=== PATIENT | male | born 1970 | race Caucasian/White ===

== ENCOUNTER 2017-06-16 23:35 | Emergency (ER) | payer OTHER ==
[~2017-06-16] VITALS: Ht 185.4 cm; Wt 117.9 kg
[2017-06-16 23:51] VITALS: Ht 185.4 cm; Wt 117.9 kg
[2017-06-17 01:07] VITALS: BP 158/94
== END 2017-06-17 01:07 | disposition home or self-care (01) ==
LOC: ED 23:35
DX: M19.90 Unspecified osteoarthritis, unspecified site (principal); M25.562 Pain in left knee; M79.642 Pain in left hand; M54.5 Low back pain; I10 Essential (primary) hypertension
CPT/HCPCS: J1885

== ENCOUNTER 2017-06-21 00:13 | Emergency (ER) | payer OTHER ==
[~2017-06-21] VITALS: Ht 182.9 cm; Wt 122.5 kg
[2017-06-21 00:42] VITALS: Ht 182.9 cm; Wt 122.5 kg
[2017-06-21 01:15] VITALS: BP 145/84
== END 2017-06-21 01:15 | disposition home or self-care (01) ==
LOC: ED 00:13
DX: M17.12 Unilateral primary osteoarthritis, left knee (principal); M25.532 Pain in left wrist; M25.562 Pain in left knee; I10 Essential (primary) hypertension; Z90.89 Acquired absence of other organs

== ENCOUNTER 2017-07-12 12:09 | Emergency (ER) | payer OTHER ==
[~2017-07-12] VITALS: Ht 182.9 cm; Wt 119.7 kg
[2017-07-12 12:14] VITALS: Ht 182.9 cm; Wt 119.7 kg
[2017-07-12 13:15] VITALS: BP 158/71
== END 2017-07-12 13:15 | disposition home or self-care (01) ==
LOC: ED 12:09
DX: M19.90 Unspecified osteoarthritis, unspecified site (principal); F17.210 Nicotine dependence, cigarettes, uncomplicated; M10.9 Gout, unspecified; F32.9 Major depressive disorder, single episode, unspecified; I10 Essential (primary) hypertension; Z76.0 Encounter for issue of repeat prescription; Z90.89 Acquired absence of other organs
CPT/HCPCS: 99406

== ENCOUNTER 2017-11-14 06:27 | Emergency (ER) | payer OTHER ==
[2017-11-14 06:50] VITALS: Ht 182.9 cm
[2017-11-14 08:10] VITALS: BP 167/108
== END 2017-11-14 08:10 | disposition home or self-care (01) ==
LOC: ED 06:27
DX: M17.0 Bilateral primary osteoarthritis of knee (principal); I10 Essential (primary) hypertension; Z90.89 Acquired absence of other organs
CPT/HCPCS: J1885

== ENCOUNTER 2018-01-12 05:29 | Emergency (ER) | payer OTHER ==
[~2018-01-12] VITALS: Ht 180.3 cm; Wt 132.1 kg
[2018-01-12 05:40] VITALS: Ht 180.3 cm; Wt 132.1 kg
[2018-01-12 06:20] VITALS: BP 151/94
== END 2018-01-12 06:20 | disposition home or self-care (01) ==
LOC: ED 05:29
DX: M25.562 Pain in left knee (principal); M25.561 Pain in right knee; M25.522 Pain in left elbow; M25.521 Pain in right elbow; I10 Essential (primary) hypertension; Z90.89 Acquired absence of other organs; Z93.3 Colostomy status; Z87.442 Personal history of urinary calculi
CPT/HCPCS: J1885

== ENCOUNTER 2018-02-08 05:52 | Emergency (ER) | payer OTHER ==
[~2018-02-08] VITALS: Ht 180.3 cm; Wt 128.8 kg
[2018-02-08 06:03] VITALS: BP 166/84; Ht 180.3 cm; Wt 128.8 kg
== END 2018-02-08 06:59 | disposition home or self-care (01) ==
LOC: ED 05:52
DX: M25.522 Pain in left elbow (principal); M25.521 Pain in right elbow; M25.562 Pain in left knee; M25.572 Pain in left ankle and joints of left foot; I10 Essential (primary) hypertension; M10.9 Gout, unspecified; F32.9 Major depressive disorder, single episode, unspecified; Z93.3 Colostomy status; Z87.442 Personal history of urinary calculi
CPT/HCPCS: J1885

== ENCOUNTER 2018-02-20 11:38 | Emergency (ER) | payer OTHER ==
[~2018-02-20] VITALS: Ht 177.8 cm; Wt 129.3 kg
[2018-02-20 11:47] VITALS: BP 138/80; Ht 177.8 cm; Wt 129.3 kg
== END 2018-02-20 13:35 | disposition home or self-care (01) ==
LOC: ED 11:38
DX: M10.9 Gout, unspecified (principal)
CPT/HCPCS: J1885

== ENCOUNTER 2018-03-26 23:55 | Emergency (ER) | payer OTHER ==
[~2018-03-26] VITALS: Ht 180.3 cm; Wt 128.8 kg
[2018-03-27 00:02] VITALS: Ht 180.3 cm; Wt 128.8 kg
[2018-03-27 00:52] VITALS: BP 135/87
== END 2018-03-27 00:52 | disposition home or self-care (01) ==
LOC: ED 23:55
DX: M19.021 Primary osteoarthritis, right elbow (principal); M17.11 Unilateral primary osteoarthritis, right knee; I10 Essential (primary) hypertension; M10.9 Gout, unspecified; F32.9 Major depressive disorder, single episode, unspecified; Z90.89 Acquired absence of other organs; Z87.442 Personal history of urinary calculi

== ENCOUNTER 2018-05-03 00:35 | Emergency (ER) | payer OTHER ==
[~2018-05-03] VITALS: Ht 182.9 cm; Wt 129.3 kg
[2018-05-03 00:49] VITALS: Ht 182.9 cm; Wt 129.3 kg
[2018-05-03 01:48] VITALS: BP 149/92
== END 2018-05-03 01:48 | disposition home or self-care (01) ==
LOC: ED 00:35
DX: M17.11 Unilateral primary osteoarthritis, right knee (principal); M19.071 Primary osteoarthritis, right ankle and foot; I10 Essential (primary) hypertension; F32.9 Major depressive disorder, single episode, unspecified; M10.9 Gout, unspecified; Z90.89 Acquired absence of other organs; Z90.49 Acquired absence of other specified parts of digestive tract; Z87.442 Personal history of urinary calculi

== ENCOUNTER 2018-07-22 13:21 | Emergency (ER) | payer OTHER ==
[~2018-07-22] VITALS: Ht 180.3 cm; Wt 125.6 kg
[2018-07-22 14:07] VITALS: Ht 180.3 cm; Wt 125.6 kg
[2018-07-22 17:06] VITALS: BP 138/77
== END 2018-07-22 17:09 | disposition home or self-care (01) ==
LOC: ED 13:21
DX: M19.90 Unspecified osteoarthritis, unspecified site (principal); I10 Essential (primary) hypertension
CPT/HCPCS: J1885

== ENCOUNTER 2018-10-09 10:32 | Emergency (ER) | payer OTHER ==
[~2018-10-09] VITALS: Ht 182.9 cm; Wt 126.6 kg
[2018-10-09 10:38] VITALS: BP 168/91; Ht 182.9 cm; Wt 126.6 kg
== END 2018-10-09 11:28 | disposition home or self-care (01) ==
LOC: ED 10:32
DX: M10.9 Gout, unspecified (principal); I10 Essential (primary) hypertension; F32.9 Major depressive disorder, single episode, unspecified; Z87.442 Personal history of urinary calculi
CPT/HCPCS: J1885; J2930

== ENCOUNTER 2018-11-17 11:19 | Emergency (ER) | payer OTHER ==
[~2018-11-17] VITALS: Ht 180.3 cm; Wt 127.0 kg
[2018-11-17 11:23] VITALS: Ht 180.3 cm; Wt 127.0 kg
[2018-11-17 12:10] VITALS: BP 153/69
== END 2018-11-17 13:01 | disposition home or self-care (01) ==
LOC: ED 11:19
DX: M10.062 Idiopathic gout, left knee (principal); M10.072 Idiopathic gout, left ankle and foot; I10 Essential (primary) hypertension; F32.9 Major depressive disorder, single episode, unspecified; Z76.0 Encounter for issue of repeat prescription; Z90.89 Acquired absence of other organs; Z87.442 Personal history of urinary calculi

== ENCOUNTER 2018-12-23 11:38 | Emergency (ER) | payer OTHER ==
[~2018-12-23] VITALS: Ht 154.9 cm; Wt 125.6 kg
[2018-12-23 11:47] VITALS: BP 146/74; Ht 154.9 cm; Wt 125.6 kg
== END 2018-12-23 13:09 | disposition home or self-care (01) ==
LOC: ED 11:38
DX: M10.062 Idiopathic gout, left knee (principal); I10 Essential (primary) hypertension; F32.9 Major depressive disorder, single episode, unspecified; Z76.0 Encounter for issue of repeat prescription; Z87.442 Personal history of urinary calculi

== ENCOUNTER 2019-02-18 14:10 | Emergency (ER) | payer OTHER ==
[~2019-02-18] VITALS: Ht 180.3 cm; Wt 121.1 kg
[2019-02-18 14:26] VITALS: Ht 180.3 cm; Wt 121.1 kg
[2019-02-18 17:05] VITALS: BP 145/73
== END 2019-02-18 17:05 | disposition home or self-care (01) ==
LOC: ED 14:10
DX: M10.9 Gout, unspecified (principal); I10 Essential (primary) hypertension; F32.9 Major depressive disorder, single episode, unspecified; Z87.442 Personal history of urinary calculi; Z98.890 Other specified postprocedural states; Z76.0 Encounter for issue of repeat prescription

== ENCOUNTER 2019-02-23 12:34 | Inpatient (IN) | payer OTHER ==
[~2019-02-23] VITALS: Ht 180.3 cm; Wt 122.2 kg
[2019-02-23 12:37] VITALS: Ht 180.3 cm; Wt 122.2 kg
--- NOTE | 2019-02-23 12:50 | NUR ---
PT PRESENTS TO ED BIB AMBULANCE WITH C/O ABDOMINAL PAIN AND CRAMPING WORSENING OVER LAST 3 DAYS. PT STS HE NOTICED SOMETHING BEGAN TO PROTRUDE FROM COLOSTOMY STOMA AND STATED HE COULD NOT USE REG COLOSTOMY BAG AND NEED TO USE ZIP LOCK BAG. PROLAPSE BOWEL NOTED IN PT ZIP LOCK BAG. BAG IS TAPED TO PT ABDOMEN. PT STS HIS CRAMPY ABDOMINAL PAIN WAS WORSE TODAY SO HE CALLED 911. PT DENIES FEVER, N/V, OR SOB. PT STS HE HAS NOT EATEN ANYTHING SINCE YESTERDAY. PT AAOX4, RESP E/U, ON FULL CM, WILL CONTINUE TO MONITOR.
--- NOTE | 2019-02-23 13:10 | NUR ---
PT TAKEN TO CT VIA [facility].
[2019-02-23 13:13] LABS: BASOPHIL % 0.1 % (0-2); RED CELL DISTRIBUTION WIDTH 15.7 % (11.5-14.5)
[2019-02-23 13:28] LABS: CALCIUM 8.9 mg/dL (8.5-10.1); CARBON DIOXIDE 27.3 mmol/L (21-32); CHLORIDE SERUM 105 mmol/L (98-107); CREATININE SERUM 1.1 mg/dL (0.7-1.3); GFR1 > 60 mL/min; GLUCOSE SERUM 114 mg/dL (74-106); POTASSIUM SERUM 3.7 mmol/L (3.5-5.1); SODIUM SERUM 142 mmol/L (136-145)
[2019-02-23 13:38] LABS: PLATELET COUNT 622 x10^3mcL (130-400)
[2019-02-23 13:41] LABS: ALBUMIN 3.5 g/dL (3.4-5.0); ALKALINE PHOSPHATASE 83 U/L (46-116); ALT/SGPT 19 U/L (16-63); AST/SGOT 6 U/L (15-37); BILIRUBIN TOTAL 0.63 mg/dL (0.20-1.00); CHOLESTEROL 175 mg/dL (<200); HDL CHOLESTEROL 42 mg/dL (40-60); LIPASE 78 IU/L (73-393); T4(THYROXINE) 6.6 ug/dL (4.7-13.3); TOTAL PROTEIN, SERUM 7.9 g/dL (6.4-8.2)
--- NOTE | 2019-02-23 13:45 | NUR ---
PT INST TO PROVIDE URINE SAMPLE SSON POSSIBLE. URINAL PROVIDED AT BEDSIDE
--- NOTE | 2019-02-23 14:32 | NUR ---
PT MEDICATED ORDERED, NO ADVERSE REACTIONS NOTED. PT LAYING ON GURNEY IN POSITION OF COMFORT, AAOX4, RESP E/U, NO ACUTE DISTRESS NOTED AT THIS TIME.
--- NOTE | 2019-02-23 14:40 | NUR ---
PT ABLE TO PROVIDE URINE SAMPLE. SAMPLE SENT TO LAB.
[2019-02-23 15:16] LABS: microscopic required? YES; urine erythrocyte 3+ (NEGATIVE)
[2019-02-23 15:47] LABS: AMPHETAMINE QUAL UR NONE DETECTED (See below)
[2019-02-23] MEDS ORDERED: ZESTRIL5 MG PO (16:18)
[2019-02-23] MEDS ORDERED: DICLOFENAC POTA50 MG PO (16:18)
--- NOTE | 2019-02-23 17:00 | NUR ---
REPORT GIVEN TO BLANCA ON MED-SURG UNIT TO ASSUME CARE OF PT.
[2019-02-23 17:41] VITALS: BP 168/95
--- NOTE | 2019-02-23 17:51 | NUR ---
RECEIVED PT FROM ED VIA [facility]. ORIENTED PT TO ROOM AND SURROUNDINGS. IV NOTED TO RAC PATENT AND INTACT. INSTRUCTED PT ON THE USE OF CALL LIGHT FOR ASSISTANCE. ENDORSED PT TO PRIMARY NURSE BLANCA
--- NOTE | 2019-02-23 18:15 | NUR ---
DR ARGUETA SAW PATIENT AND EXPLAINED PROCEDURE TO TAKE PLACE TOMORROW. EXPLORATRY LAP WITH COLOSTOMY RESECTION. ORDERED FOR PATIENT TO BE ON LOW INTERMITTENT SUCTION
--- NOTE | 2019-02-23 19:10 | NUR ---
RECEIVED REPORT FROM BLANCA ONEAL. PT AAOX4 WITH FAMILY AT BEDSIDE. PT DENIES HEADACHE OR DIZZINESS AT THIS TIME. PT HAS NGT TO RIGHT NARE. PT IS MED-SURG AND DENIES CHEST PAIN OR PRESSURE AT THIS TIME. PT PULSES PALPABLE AND CAP REFILL <3 SEC. PT HAS TRACE EDEMA TO BLE. PT LUNG SOUNDS CTA ON RA. PT BREATHING IS EVEN AND UNLABORED. PT HAS HYPOACTIVE BOWEL SOUNDS X4. PT HAS DISTENDED ABD WITH PROLAPSED OSTOMY IN RLQ. PT DENIES N/V/D AT THIS TIME. PT VOIDS FREELY BUT HAS SCROTAL EDEMA. PT IS AMBULATORY WITH GENERALIZED WEAKNESS. PT SKIN IS INTACT AND WNL EXCEPT FOR PROLAPSED COLOSTOMY. PT IV IS PATENT AND WNL. PT IS CALM AND COOPERATIVE WITH NURSING CARE. CALL LIGHT WITHIN REACH. BED IN LOWEST POSITION. SIDE RAILS X2 UP. WILL CONTINUE TO MONITOR.
--- NOTE | 2019-02-23 19:30 | NUR ---
REASSESSED PT PAIN LEVEL AFTER DAY SHIFT RN HAD ADMINISTERED NORCO FOR ABD PAIN. PT STATES "I AM STILL HAVING ABD PAIN OF 8/10." WILL MAKE DR. MARKS AWARE AND AWAITING ORDERS.
--- NOTE | 2019-02-23 19:35 | NUR ---
GAVE REPORT TO NIGHT NURSE, ENDORSED CARE
--- NOTE | 2019-02-23 20:00 | NUR ---
SPOKE WITH DR. MARKS AND AWAITING ORDERS FOR PAIN MEDS.
[2019-02-23 20:47] VITALS: BP 149/86
--- NOTE | 2019-02-23 22:30 | NUR ---
REASSESSED PT AFTER ADMINISTRATION OF TORADOL PER MAR. PT STATES "TORADOL DOES NOT WORK FOR ME." WILL ADMINISTER MORPHINE PER MAR AFTER ASSESSING BP.
--- NOTE | 2019-02-23 23:00 | NUR ---
HUB INVENTORY SPECIALIST CALLED AND MADE AWARE OF COMING TO UNIT TO GET XRAY FOR KUB FOR NGT. AWAITING FOR ARRIVAL OF HUB INVENTORY SPECIALIST.
--- NOTE | 2019-02-24 00:04 | NUR ---
RADIOLOGY CALLED AND MADE AWARE THAT NGT NEEDS TO BE ADVANCED 8CM. WILL CARRY OUT ORDERS.
--- NOTE | 2019-02-24 00:35 | NUR ---
D/C NGT AND REINSERTED NEW NGT INTO RIGHT NARE. ADVANCED NGT AND CONFIRMED PLACEMENT WITH 10CC OF AIR. WILL ORDER ANOTHER KUB TO CONFIRM PLACEMENT.
--- NOTE | 2019-02-24 00:38 | NUR ---
PT IS AWAKE AND LAYING IN BED. PT STATES "I AM STILL IN PAIN AND WOULD LIKE SOMETHING STRONGER." MADE DR. MARKS AWARE AND AWAITING ORDERS.
[2019-02-24 05:56] VITALS: BP 148/84
--- NOTE | 2019-02-24 06:15 | NUR ---
PT LEFT FOR SURGERY. V/S STABLE.
--- NOTE | 2019-02-24 06:17 | NUR ---
PT SLEPT INTERMITTENTLY THROUGHOUT THE NIGHT. PT COMPLIED WITH NURSING CARE THROUGHOUT THE SHIFT. NO ACUTE DISTRESS NOTED. SAFETY AND COMFORT MEASURES MAINTAINED. ALL QUESTIONS AND CONCERNS ADDRESSED. WILL ENDORSE CARE TO DAY SHIFT NURSE.
[2019-02-24 06:24] LABS: CARBON DIOXIDE 27.4 mmol/L (21-32); CREATININE SERUM 1.4 mg/dL (0.7-1.3); POTASSIUM SERUM 4.1 mmol/L (3.5-5.1)
[2019-02-24 06:51] LABS: BASOPHIL % 0.3 % (0-2)
--- NOTE | 2019-02-24 07:13 | NUR ---
RECEIVED REPORT FROM JC Coburn PATIENT IS CURRENTLY DOWNSTAIRS FOR SURGERY. ALL QUESTIONS AND CONCERNS ADDRESSED. AWAITING PATIENT RETURN TO FLOOR.
[2019-02-24 09:25] LABS: RED CELL DISTRIBUTION WIDTH 15.7 % (11.5-14.5)
[2019-02-24 09:26] LABS: PLATELET COUNT 525 x10^3mcL (130-400)
--- NOTE | 2019-02-24 10:03 | NUR ---
RECEIVED REPORT FROM JUAN IN POST[facility]. PATIENT TOLERATED PROCEDURE WELL. INCISION X1 WITH SUTURES AND LOPEZ, COVERED WITH 4X4 AND TAPE. NEW COLOSTOMY PLACED. VITALS STABLE (SEE DOCUMENTATION. AWATING PT ARRIVAL TO FLOOR.
[2019-02-24 10:29] VITALS: BP 138/75
--- NOTE | 2019-02-24 10:29 | NUR ---
RECEIVED PATIENT FROM POSTOP. PATIENT RESTING COMFORTABLY IN BED WITH ALL NEEDS MET. VITALS TAKEN AND STABLE (SEE DOCUMENTATION). PT C/O NO PAIN. MODERATE DRAINAGE NOTED AT SURGICAL SITE, JUAN CLEANED AND REINFORCED. WILL MONITOR. FLUIDS RESUMED AND MEDICATIONS GIVEN.
--- NOTE | 2019-02-24 10:44 | NUR ---
ROUNDS: DR CASTAÑEDA, RESIDENTS, AND PRIMARY RN AT BEDSIDE. DISCUSSED PLAN OF CARE, SURGERY, AND COLOSTOMY HISTORY. DISCUSSED PRIMARY DOCTOR. ALL QUESTIONS AND CONCERNS ADDRESSED. PLAN IS TO AWAIT SURGEON CONSENT TO EAT AND MONITOR FOOD TOLERANCE.
--- NOTE | 2019-02-24 12:29 | NUR ---
SPOKE WITH DR QUIROGA ABOUT LEAKING COLOSTOMY AND SOILED DRESSING. DR QUIROGA GAVE OK TO CHANGE COLOSTOMY AND INFORMED THAT WOUND CARE WAS CONSULTED.
--- NOTE | 2019-02-24 14:32 | NUR ---
SPOKE WITH DR PINEDA TO REQUEST RENEWING OF IV DILAUDID PER PT REQUEST AND FOR POSSIBLE FOOD ORDER. DR PINEDA TO CONSULT WITH SURGEON AND PLACE ORDERS ACCORDINGLY. WILL AWAIT ORDERS AND NOTIFY PATIENT.
--- NOTE | 2019-02-24 15:20 | NUR ---
IN TO SEE PATIENT AFTER LUNCH AND ASSESS NEEDS. PT REPORTS CONTINUED PAIN 10. STILL NO ORDER FOR ALTERNATE MEDICATION. WILL ADMINISTER TORADOL.
[2019-02-24 17:03] VITALS: BP 123/69
--- NOTE | 2019-02-24 19:25 | NUR ---
RECEIVED PT IN BED AWAKE,ALERT,ORIENTED AND WITH VISITOR AT BEDSIDE. LUNGS CTA. NO SOB ON ROOM AIR. BOWEL SOUNDS ACTIVE. SX SITE TO RT SIDE OF ABDOMEN W/ DRESSING CDI. COLOSTOMY IN PLACE. STOMA APPEARS MOIST AND RED IN COLOR. PT HAS NO C/O PAIN AT THIS TIME. W/ NGT TO RT NARE IN PLACE. IVF NS INFUSING AT 100 CC/HR VIA LT HAND. W/ HL TO RTAC INTACT. CALL LIGHT W/IN REACH.
--- NOTE | 2019-02-24 19:36 | NUR ---
REPORT GIVEN TO BOO ONEAL. PATIENT RESTING COMFORTABLY IN BED WITH FAMILY AT BEDSIDE. NO NEEDS IDENTIFIED. ALL QUESTIONS AND CONCERNS ADDRESSED. ALL CARES ENDORSED.
[2019-02-24 21:10] VITALS: BP 122/67
--- NOTE | 2019-02-24 21:25 | NUR ---
PT C/O PAIN AT SX SITE 10/16. MORPHINE SULFATE 1 MG IV GIVEN.
--- NOTE | 2019-02-25 02:06 | NUR ---
PT C/O POST-OP PAIN 11/16. MORPHINE SULFATE 1 MG IV GIVEN.
--- NOTE | 2019-02-25 02:10 | NUR ---
COLOSTOMY NOTED FULL OF GAS AND W/ A LITTLE GREENISH MUCOID OUTPUT. BAG EMPTIED.
--- NOTE | 2019-02-25 05:27 | NUR ---
PT SLEPT AT LONG INTERVALS. HE WAS MEDICATED FOR PAIN X2. PT KEPT NPO EXCEPT FOR ICE CHIPS AND SIPS OF WATER. COLOSTOMY INTACT. DRESSING TO SX SITE CDI. IVF D5 1/2 NS INFUSING AT 100 CC/HR VIA LT HAND. HL TO RTAC INTACT. ALL NEEDS ATTENDED TO. PT'S BROTHER AT BEDSIDE.
--- NOTE | 2019-02-25 05:59 | NUR ---
PT C/O PAIN TO SX SITE 12/17. MORPHINE SULFATE 1 MG IV GIVEN.
[2019-02-25 06:00] VITALS: BP 133/69
[2019-02-25 06:41] LABS: CALCIUM 7.7 mg/dL (8.5-10.1); CARBON DIOXIDE 28.6 mmol/L (21-32); CREATININE SERUM 1.5 mg/dL (0.7-1.3); POTASSIUM SERUM 3.7 mmol/L (3.5-5.1)
[2019-02-25 07:05] LABS: BASOPHIL % 0.3 % (0-2)
--- NOTE | 2019-02-25 07:35 | NUR ---
PATIENT RESTING IN BED, NO ACUTE DISTRESS NOTED. PATIENT DENIES SOB, ON ROOM AIR, LUNG SOUNDS CTA. BOWEL SOUNDS ACTIVE X4, +GAS. GREEN DRAINAGE NOTED TO RLQ COLOSTOMY. PATIENT NGT TO RIGHT NARE CLAMPED AT THIS TIME. PATIENT ABLE TO VOID FREELY, EDEMA NOTED TO SCROTAL. PATIENT DENIES BURNING, AND FREQUENCY UPON URINATING. SURGICAL INCISION TO BELOW RIGHT RLQ COLOSTOMY, CDI, NO DRAINAGE NOTED. D5 1/2NS INFUSING TO LH AT 100ML/HR, IV SITE CDI&PATENT, NO S/S OF INFILTRATION. CALL LIGHT WITHIN REACH, BED IN LOW POSITION, WILL CONTINUE TO MONITOR.
[2019-02-25 07:42] LABS: PLATELET COUNT 496 x10^3mcL (130-400); RED CELL DISTRIBUTION WIDTH 15.9 % (11.5-14.5)
--- NOTE | 2019-02-25 08:25 | NUR ---
PATIENT RIGHT NARE NGT WAS CLAMPED, PLACED PATIENT TO LOW INT. SUCTION AT THIS TIME. EDUCATED PATIENT ON PURPOSE FOR SUCTION, PATIENT VERBALIZED UNDERSTANDING. WILL CONTINUE TO MONITOR PATIENT, CALL LIGHT WITHIN REACH.
[2019-02-25 09:19] VITALS: BP 144/78
--- NOTE | 2019-02-25 09:23 | NUR ---
PATIENT WAS C/O ABDOMINAL PAIN 10/16, MEDICATED PATIENT WITH NORCO PER PROTOCOL (SEE EMAR). EDUCATED PATIENT ON PAIN MANAGEMENT, PATIENT VERBALIZED UNDERSTANDING, CALL LIGHT WITHIN REACH, BED IN LOW POSITION. WILL CONTINUE TO MONITOR.
--- NOTE | 2019-02-25 09:40 | NUR ---
PATIENT ACCIDENTLY PULLED OUT NGT TO RIGHT NARE, WHILE TRYING TO GET UP. DR. PINEDA MADE AWARE, NO FURTHER ORDERS AT THIS TIME. WILL CONTINUE TO MONITOR FOR CHANGES.
--- NOTE | 2019-02-25 09:59 | NUR ---
PATIENT IS UP AND AMBULATING HALLWAYS, SLOW STEADY GAIT NOTED. NO ACUTE DISTRESS NOTED, DENIES SOB. WILL CONTINUE TO MONITOR.
--- NOTE | 2019-02-25 11:34 | NUR ---
DR. PINEDA AWARE PATIENT IS HIGH RISK DVT, DR. PINEDA STATED PATIENT IS AMBULATORY AND WITH SCDS ARE OKAY. NO PROPHYLAXIS NECESSARY AT THIS TIME.
--- NOTE | 2019-02-25 12:27 | NUR ---
WOUND CARE CONSULT REASON FOR CONSULTATION: S/P SURGICAL WOUNDS/COLOSTOMY CARE WOUND ASSESSMENT DONE TO THIS 48 YEARS OLD MALE WITH INITIAL DX OF ABDOMINAL PAIN. SURGERY DONE WITH DR. QUIROGA DX OF PARASTOMAL HERNIA, COLONIC SBO, MULTIPLE SMALL BOWEL FISTULAS. POC AND COLOSTOMY CARE DISCUSSED WITH PRIMARY RN AND PT. PT. VERBALIZES UNDERSTANDING. PER PT. HE PREFERE ONE PICE COLOSTOMY DEVICES, HOUSEKEEPING ASSISTANT NOTIFIED. INTUGUMENTARY. -MID ABDOMINAL OLD HEALED SCARS -RLQ ABD.COLOSTOMY STOMA WITH 1 3/4"(44MM)IN DIAMETER,OVAL SHAPE 0.7 CM TALL, STOMA BEEFY RED, ROSANNE-STOMA SKIN DRY AND INTACT EXCEPT TO 12 O'CLOCK DIRECTION WITH EXTENDED SURGICAL WOUND 7CM IN LENGTH, [address] NOTICE OF SMALL AMOUNT SEROSANGINOUS DRAINAGE, NO ODOR, ROSANNE WOUND SKIN INTACT,MOIST AND CLEAN RECOMMENDATIONS: -FOLLOW UP WITH SURGEON IN 7-10 DAYS AFTER DISCHARGE FOR WOUND RE-EVALUATION/ LOPEZ REMOVAL -CLEANSE RLQ ABD SURGICAL WOUND/LOPEZ WITH NS. PAT DRY, COVER WITH ISLAND DRESSING QD AND PRN IF SOILING -OSTOMY CARE PER PROTOCOL AND DURING OSTOMY CARE PLEASE FOLLOW INSTRUCTION BELOW: -CHECK ROSANNE STOMA SKIN CONDITION EVERY TIME WAFER CHANGED Q 5 DAYS AND PRN IF DISPLACED -APPLY SKIN PREP TO ROSANNE-OSTOMY SKIN -APPLY STOMA ADHESIVE PAST TO THE WAFER, NEAR THE EDGE OF STOMA SKIN FOLD AREA, PAT FLAT. APPLY SKIN PREP TO ROSANNE-STOMA SKIN - USE 1- PIECE SHERI OSTOMY DEVICES WITH 1 3/4" (44MM), CUT TO OVAL SHAPE FIT THE STOMA EXACTLY. NO SKIN SHOWING. CHANGE WAFER Q5 DAYS. -EMPTY AND RINSE POUCH WHEN IT IS 1/3 FULL. CHANGE POUCH Q5 DAYS AND PRN IF LEAK -MAY DISCHARGE HOME WITH SULLPIES FOLLOWIN COMPLETE POUCH CHANGES 1 TUBE OF STOMA ADHESIVE PASTE 1 BOTTLE OF STOMA ADHESIVE POWDER 4-8 SKIN PREPS ALL ABOVE INSTRUCTION EXPLAINED AND DEMONSTRATED TO PT. PT. VERBALIES UNDERSTANDING. PRIMARY RN CONTINUE TEACHING COLOSTOMY CARE.
--- NOTE | 2019-02-25 15:53 | NUR ---
PATIENT WAS C/O MODERATE PAIN 10/16 TO ABDOMEN, MEDICATED PATIENT WITH NORCO PER PROTOCOL (SEE EMAR). EDUCATED PATIENT ON PAIN MANGEMENT, REPOSITIONED PATIENT FOR COMFORT. WILL CONTINUE TO MONITOR & MANAGE PAIN.
[2019-02-25 17:33] VITALS: BP 139/72
--- NOTE | 2019-02-25 17:36 | NUR ---
PATIENT UP AND AMBULATING HALLWAYS AT THIS TIME, SLOW STEADY GAIT NOTED. PATIENT DENIES SOB, ON ROOM AIR. NO RESPIRATORY DISTRESS NOTED. PATIENT DENIES PAIN, WILL CONTINUE TO MONITOR FOR CHANGES.
--- NOTE | 2019-02-25 18:27 | NUR ---
ABXS GIVEN AT THIS TIME. IV TO CDI& PATENT, NO S/S OF INFILTRATION. PATIENT C/O MILD DISCOMFORT TO ABDOMEN, WILL MEDICATE PER PROTOCOL. PATIENT DENIES SOB, ON ROOM AIR. DRESSING TO RLQ CDI, NO DRAINAGE NOTED. ALL NEEDS MET AT THIS TIME. CALL LIGHT WITHIN REACH, BED IN LOW POSITON. WILL ENDORSE REPORT TO NIGHT RN.
--- NOTE | 2019-02-25 20:00 | NUR ---
PT RECIEVED AAO REG RESP NO SOB V/S STABLE,KEPT CLEAN AND DRY TO TOUCH,IV INFUSING WELL WITH SITE PATENT AMND INTACT,BED IN THE LOW POSITION AND LOCJED AND CALL LIGHT EASY REACHED AND WILL CONTINUE TO MONITOR.
[2019-02-25 21:06] VITALS: BP 129/66
--- NOTE | 2019-02-25 22:44 | NUR ---
PT SLEEPING AT THIS TIME AND WILL CONTINUE TO MONITOR.
--- NOTE | 2019-02-26 04:42 | NUR ---
PT C/O ABD SURGICAL SITE PAIN 10/16. NORCO GIVEN.
[2019-02-26 05:34] VITALS: BP 153/75
--- NOTE | 2019-02-26 06:15 | NUR ---
PT RESTING IN BED. AA&O X4. NO SOB NOTED ON ROOM AIR. NO C/O PAIN AT THIS TIME. IV SALINE LOCKED TO RAC. IV TO LT HAND, D51/2 NS INFUSING. RLQ COLOSTOMY, INTACT. ABD DRESSING, C/D/I. PT AMBULATED ALONG THE HALLWAY. NO DISTRESS NOTED. SAFETY MEASURES MAINTAINED. ALL NEEDS ATTENDED TO. CALL LIGHT WITHIN REACH. BROTHER AT BEDSIDE. WILL CONTINUE TO MONITOR AND WILL ENDORSE CONTINUITY OF CARE TO ONCOMING RN.
[2019-02-26 06:21] LABS: BASOPHIL % 0.6 % (0-2)
[2019-02-26 06:50] VITALS: BP 130/61
[2019-02-26 06:51] LABS: PLATELET COUNT 509 x10^3mcL (130-400); RED CELL DISTRIBUTION WIDTH 15.4 % (11.5-14.5)
[2019-02-26 07:01] LABS: CALCIUM 7.8 mg/dL (8.5-10.1); CHLORIDE SERUM 105 mmol/L (98-107); CREATININE SERUM 1.2 mg/dL (0.7-1.3); GFR1 > 60 mL/min; GLUCOSE SERUM 112 mg/dL (74-106); PHOSPHOROUS 2.2 mg/dL (2.5-4.9); POTASSIUM SERUM 3.6 mmol/L (3.5-5.1); SODIUM SERUM 141 mmol/L (136-145)
--- NOTE | 2019-02-26 07:08 | NUR ---
RECEIVED PT FROM HEBREW PROFESSOR NURSE. PT RESTING IN BED, AXO4, RESP E/U ON RA. C/O MILD ABD PAIN BUT TOLERABLE, NO REQUEST FOR PAIN MEDS AT THIS TIME. DENIES N/V. DRESSING TO RLQ OF ABD CDI, COLOSTOMY IN PLACE TO RLQ W/ NO OUTPUT AT THIS TIME. IV TO L HAND W/ NO SIGNS OF INFILTRATION, IVF INFUSING WELL, SALINE LOCKT TO RFA W/ NO ERYTHEMA OR EDEMA. BED IN LOWEST POSITION AND CALL LIGHT WITHIN REACH. WILL CONTINUE TO MONITOR.
[2019-02-26 09:28] VITALS: BP 145/67
--- NOTE | 2019-02-26 11:25 | NUR ---
PT RESTING IN BED, AOX4, RESP E/U ON RA. C/O OF ABD PAIN ON TO RLQ OVER SX SITE. MEDICATED ORDERED PER EMAR. COMFORT MEASURES IMPLEMENTED. BED IN LOWEST POSITION AND CALL LIGHT WITHIN REACH. WILL CONTINUE TO MONITOR.
--- NOTE | 2019-02-26 12:39 | NUR ---
PT SEEN AT BEDSIDE. LEAKING TO COLOSTOMY BAG NOTED. APPLIANCE REMOVED, ISLAND DRESSING TO SX INCISION AT RLQ OVER STOMA REMOVED. LOPEZ INTACT, WOUND CARE DONE. COLOSTOMY CARE DONE, NEW BAG IN PLACE SECURED W/ LATEX FREE TAPE. WILL CONTINUE TO MONITOR.
[2019-02-26 17:58] VITALS: BP 130/78
--- NOTE | 2019-02-26 19:15 | NUR ---
PT RESTING IN BED, AOX4, RESP E/U ON RA. DENIES ABD PAIN OR NAUSEA AT THIS TIME. COLOSTOMY INTACT W/ MINIMAL AMOUNT OF DARK GREEN OUTPUT. DRESSING TO SX INCISION ABOVE STOMA TO RLQ CDI. IV TO LH W/ NO SIGNS OF INFILTRATION, IVF INFUSING WELL. BED IN LOWEST POSITION AND CALL LIGHT WITHIN REACH. CARE ENDORSED TO BUTTON BREAKER OPERATOR NURSE.
[2019-02-26 19:25] VITALS: BP 139/72
--- NOTE | 2019-02-26 19:25 | NUR ---
RECEIVED PT AWAKE ALERT AND VERBALLY RESPONSIVE S/P COLOSTOMY REVISION 02/24/19.COLOSTOMY TO [place] GREENISH STOOL.NO LEAKS NOTED.ABOMINAL INCISION WITH DRESSIGN INTACT.ABDOMEN SOFT AND ROUND.INSTRUCTED PROPER USE OF INCENTIVE SPIROMETER AND ENCOURAGED USE.BP 139/72 MMHG,HR 94.SCROTASL SWELLING NOTED D/T HX HERNIA.DENIES ANY PAIN AT THIS TIME.WILL CONTINUE TO MONITOR.
--- NOTE | 2019-02-27 04:37 | NUR ---
PT SLEPT WITH INTERVALS.NO ASE NOTED FROM ZOSYN IV ATB.COLOSTOMY BAG CHANGED X1,NOTED LEAKING TO GREENISH COLORED OUTPUT.CLEANSED WOUND WITH NSS AND COVERED WITH ISLAND DRESSIGN ORDERED.MEDICATED WITH NORCO FOR INCISION PAIN WITH GOOD RELIEF.ALL NEEDS MET.WILL CONTINUE TO MONITOR.
[2019-02-27 05:30] VITALS: BP 153/72
[2019-02-27 06:38] LABS: CHLORIDE SERUM 105 mmol/L (98-107); CREATININE SERUM 1.1 mg/dL (0.7-1.3); GFR1 > 60 mL/min; GLUCOSE SERUM 98 mg/dL (74-106); POTASSIUM SERUM 3.5 mmol/L (3.5-5.1); SODIUM SERUM 140 mmol/L (136-145)
[2019-02-27 06:46] LABS: BASOPHIL % 0.3 % (0-2)
[2019-02-27 07:03] LABS: PLATELET COUNT 448 x10^3mcL (130-400); RED CELL DISTRIBUTION WIDTH 15.1 % (11.5-14.5)
--- NOTE | 2019-02-27 07:20 | NUR ---
RECEIVED PT FROM EDGAR SEYMOUR. PT AA/OX4, NO S/S OF ACUTE DISTRESS. MED SURG. NO SOB ON ROOM AIR. RLQ COLOSTOMY IN TACT, NO LEAKING NOTED. OUTPUT OF GREEN DRAINAGE NOTED, MODERATE. NO C/O PAIN AT THIS TIME. NO N/V. NO CHILLS. NO FEVER. IVS WNL TO RAC/LH, IVF FLOWING TO LH. PATENT AND FLUSHES WELL. INSTRUCTED TO USE CALL LIGHT TO CALL FOR ASSISTANCE PRN. VERBALIZED UNDERSTANDING. VISITOR AT BEDSIDE. BED IN LOW POSITION. CALL LIGHT WITHIN REACH. WILL CONT. TO MONITOR.
[2019-02-27 09:12] VITALS: BP 140/79
--- NOTE | 2019-02-27 11:32 | NUR ---
PT REPORTS PAIN DECREASED, RATES PAIN TOLERABLE AT THIS TIME. 05/19. NO S/S OF ACUTE DISTRESS. AA/OX4. NO SOB ON ROOM AIR. COLOSTOMY IN TACT, NO LEAK NOTED. NO N/V. CALM/COOPERATIVE. IV WNL TO RAC, IVF FLOWING. DRESSING CDI TO ABD. BED IN LOW POSITION. CALL LIGHT WITHIN REACH. WILL CONT. TO MONITOR.
--- NOTE | 2019-02-27 13:35 | NUR ---
Initial Nutrition Assessment: 207/B BRENNA HENAO HR Dx: Prolapse bowel, SBO PMHx: HTN PSHx: Diversion colostomy 2008 Labs: CA 8.0L, HGB 8.7L Meds: Advil, Flomax, norco, Zofran, zosyn Diet: clear liquid PO intake since admission: (02/26) 0% Ht: 180.34 cm (71") Wt: 122 kg (268#) BMI: 37.6 kg/m2 Bed scale: 122 kg IBW: 172# (78 kg) %IBW: 155 UBW: 122 kg Age: 48/M Food Allergies: NKFA Skin: s/p colostomy revision Roshan: 20 Edema: none GI: colostomy Last BM: 02/26 Per H&P, Pt is a 48 yo male with PMH of HTN and right-side diversion colostomy done in 2008 who was BIBA from home for abdominal pain. 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 Patient was supposed to get reversal of his colostomy but he couldn't get it done because of insurance issues, then he never went back to get it reversed. RD Note (02/27): Patient said that he is drinking Ensure clear and ate some jello for breakfast this morning. Patient said that he is hungry but gets full fast. Per progress note (02/26), Post op day 2, no fever, Dr. Manzanares advanced diet to clear liquid and told patient small amounts. FNS received wound care consult for "colostomy" on 02/25 Problem with: N/V/D/C: none at this time Problems with: Chewing: Swallowing: none Current appetite: good Recent wt change: none %wt change: n/a Vitamin/Supplement use: MVI Special diet at home: Regular Physical activity: sedentary Nutrition education given: Low sodium diet education was provided. Tips about label reading and healthy eating were discussed in length. Food-drug interactions: none Education given: n/a Estimated Nutritional Needs Based on ideal body weight (78 kg) Energy: 0763-5703 kcal/day (25-30 kcal/kg for maintenance) Protein: 94-109 g/day (1.2-1.4 g/kg for post- op) Fluid: 6637-3590 mL/day (1 mL/kcal) Nutrition Diagnosis: 1. Inadequate oral intake related to restrictive diet order 2/2 surgery as evidenced by self- reported PO <75% Intervention 1. Recommend progressing to full liquid diet once medically appropriate/ tolerated. Monitor/Evaluate Goal: PO intake at least 75% of estimated needs Monitor: PO intake, Labs, GI function F/U in 3-5 days as moderate risk
--- NOTE | 2019-02-27 13:35 | NUR ---
1. Recommend progressing to full liquid diet once medically appropriate/ tolerated.
[2019-02-27 16:29] VITALS: BP 131/69; BP 161/77
--- NOTE | 2019-02-27 18:14 | NUR ---
PT LAYING IN BED. NO S/S OF ACUTE DISTRESS. REPORTS ABD PAIN TOLERABLE AT THIS TIME. RATES 4/10. CONTINUOUS. ACHING TO SURGICAL SITE. WORSE WITH MOVEMENT. NO N/V. COLOSTOMY TO RLQ CDI. NO LEAKING NOTED. OUTPUT GREEN LOOSE. SURGICAL DRESSING TO ABD. CDI. IVS WNL TO RAC/LH. PATENT AND FLUSH WELL. IVF FLOWING TO LH. NO CHEST PAIN. BROTHER AT BEDSIDE. FALL PREC IN PLACE. AA/OX4. BED IN LOW POSITION. CALL LIGHT WITHIN REACH. WILL ENDORSE TO ONCOMING SHIFT.
--- NOTE | 2019-02-27 18:46 | NUR ---
PT AMBULATORY TO RESTOOM WITH WALKER, GAIT SLOW/STEADY. NO S/S OF ACUTE DISTRESS. TEMP 97.6F. BED IN LOW POSITION. CALL LIGHT WITHIN REACH. WILL ENDORSE TO ONCOMING SHIFT.
--- NOTE | 2019-02-27 19:30 | NUR ---
RECEIVED PT FROM AM NURSE, PT LAYING DOWN IN BED WITH FAMILY AT BEDSIDE. PT AAOX4, ABLE TO FOLLOW COMMANDS AND MAKE NEEDS KNOWN. MED-SURG, DENIES CP/PRESSURE AT THIS TIME. PALPABLE PULSES TO ALL EXTREMETIES. NO EDEMA NOTED. LUNG SOUNDS CTA. BREATHING EVEN AND UNLABORED ON RA. NO ACUTE DISTRESS NOTED. ACTIVE BS X4 QUAD. ABD SOFT AND ROUND. COLOSTORY TO RLQ, NO STOOL NOTED ON BAG. VOIDS FREELY, BRP OR URINAL. SCROTAL EDEMA NOTED. AMBULATORY. ABD INCISION TO ABD COVERED WITH DRESSING. DRESSING CDI. IV TO LH AND RAC, BOTH FLUSHING WELL. SITES WNLT. BED AT LOWEST SETTING. SIDE RAILS X2 UP. CALL LIGHT WHING REACH. WILL CONT TO MONITOR.
[2019-02-27 20:18] VITALS: BP 141/69
[2019-02-28 05:32] VITALS: BP 138/80
--- NOTE | 2019-02-28 05:54 | NUR ---
PT SLEPT WELL THROUGHOUT THE NIGHT, BREATHING EVEN AND UNLABORED ON RA. NO CHANGES DURING THE SHIFT. PT C/O 09/16 ABD PAIN, MEDICATED WITH PRN NORCO PER JUN. NO ACUTE DISTRESS NOTED. ALL NEEDS ASSESSED AND ATTENDED TO. BED AT LOWEST SETTING. SIDE RAILS X2 UP. CALL LIGHT WITHING REACH. WILL ENDORSE CARE TO AM NURSE.
[2019-02-28 06:28] LABS: BASOPHIL % 0.4 % (0-2)
[2019-02-28 06:41] LABS: CALCIUM 8.1 mg/dL (8.5-10.1); CARBON DIOXIDE 26.9 mmol/L (21-32); CHLORIDE SERUM 104 mmol/L (98-107); GFR1 > 60 mL/min; GLUCOSE SERUM 93 mg/dL (74-106); POTASSIUM SERUM 3.5 mmol/L (3.5-5.1); SODIUM SERUM 140 mmol/L (136-145)
[2019-02-28 06:43] LABS: RED CELL DISTRIBUTION WIDTH 15.8 % (11.5-14.5)
--- NOTE | 2019-02-28 07:25 | NUR ---
RECEIVED REPORT FROM ORGANIC LAB WORKER NURSE. PATIENT SITTING UP AT THE EDGE OF BED IV INFUSING ON LH AND RAC PATENT AND INTACT NO REDNESS OR EDEMA NOTED. STOMA CLEAN NO SIGNS OF INFECTION NOTED OSTMY BAG IN PLACE AND INTACT. PATIENT DENIES ANY PAIN AT THIS TIME. ALL QUESTIONS AND CONCERNS ADDRESSED AT THIS TIME. BED IN LOW POSITION CALL LIGHT WITHIN REACH. WILL CONTINUE TO MONITOR.
[2019-02-28 09:03] VITALS: BP 141/73
--- NOTE | 2019-02-28 09:26 | NUR ---
PATIENT LYING IN BED WITH FAMILY AT BEDSIDE. ADMINISTERED SCHEDULED MED PER JUN. PATIENT TOLERATED WELL NO ADVERSE REACTIONS NOTED. PATIENT DENIES ANY PAIN AT THIS TIME. OSTOMY CLEAN AND BAG INTACT NO S/S OF INFECTIONS NOTED. ALL QUESTIONS AND CONCERNS ADDRESSED AT THIS TIME. PER PATIENT DR STATED THEY WILL ADVANCE DIET TOLERATED PATIENT ON CLEAR LIQUIS RIGHT NOW. WILL PROCEED WITH ORDER DIRECTED. BED IN LOW POSITION AND CALL LIGHT IS WITHIN REACH. FAMILY AT BEDSIDE. WILL CONTINUE TO MONITOR.
[2019-02-28 09:32] LABS: PLATELET COUNT 496 x10^3mcL (130-400)
--- NOTE | 2019-02-28 10:30 | NUR ---
PATIENT AMBULATING IN HALLWAY WITH FAMILY. NO S/S OF DISTRESS NOTED. GAIT AND BALANCE IS STEADY.
--- NOTE | 2019-02-28 12:10 | NUR ---
ANALYTICAL CLERK AT BEDSIDE PROVIDING RESOURCES FOR PATIENT. PATIENT SITTING UP IN BED IN NO APARENT DISTRESS. ALL NEEDS ATTENDED TO AT THIS TIME. BED IN LOW POSITION AND CALL LIGHT IS WITHIN REACH. WILL CONTINUE TO MONITOR.
--- NOTE | 2019-02-28 13:00 | NUR ---
PATIENT C/O 11/16 PAIN IN ABDOMEN ADMINISTERED NORCO PO PER JUN FOR SEVERE PAIN. PROVIDED PUDDING AND APPLE SAUCE. PATIENT DIET CHANGED TO MECHANICAL SOFT. WILL MONITOR FOR TOLERATION. ALL NEEDS ATTENDED TO AT THIS TIME. BED IN LOW POSITION CALL LIGHT WITHIN REACH. FAMILY AT BEDSIDE. WILL CONTINUE TO MONITOR.
--- NOTE | 2019-02-28 15:58 | NUR ---
PATIENT SITTING UP I BED ON HIS PHONE. PATIENT DENIES ANY PAIN. IV INFUSING PATENT AND INTACT. COLOSTOMY INTACT NO S/S OF INFECTION NOTED. ALL NEEDS ATTENDED TO AT THIS TIME. BED IN LOW POSITION CALL LIGHT WITHIN REACH. WILL CONTINUE TO MONITOR.
[2019-02-28 17:38] VITALS: BP 148/78
--- NOTE | 2019-02-28 18:26 | NUR ---
PATIENT SITTING UP IN BED EATING DINNER TOLERATING DIET. PATIENT DENIES ANY PAIN AT THIS TIME. PATIENT OF EATING MORE SOLID FOOD EDUCATED PATIENT. PATIENT VERBALIZED UNDERSTANDING AND WILL ADVANCE DIET TOLERABLE. OSTOMY BAG INTACT NO REDNESS OR EDEMA NOTED AROUNG STOMA. NO S/S OF INFECTION NOTED. IV ON RAC AND LEFT WRIST PATENT AND INTACT. ALL NEEDS ADDRESSED AT THIS TIME. BED IN LOW POSITION CALL LIGHT WITHIN REACH. WILL ENDORSE CARE TO CRIBBER NURSE.
--- NOTE | 2019-02-28 19:25 | NUR ---
RECEIVED PT RESTING IN BED, NO ACUTE DISTRESS NOTED. AOX4, DENIES HARPER/DIZZINESS. MEDSURG PT, DENIES CP. PULSES PALPABLE BILAT, DENIES NUMBNESS/TINGLING IN FEET. TRACE EDEMA LLE, SCROTAL EDEMA NOTED. PT DENIES PAIN, MINIMAL DYSURIA. RESP EVEN AND UNLABORED ON RA, DENIES SOB. ABD SOFT, ROUNDD, S/P 02/24 EXP LAP: COLOSTOMY REVISION, ABD INCISION X1. CLOSED WITH LOPEZ. CDI. PT WITH RLQ COLSTOMY BAG IN PLACE, DRAINING SOFT, DARK BROWN/GREENISH STOOL. PT TOLERATED HALF OF DINNER, PT VOIDS, BRP. AMBULATORY. PT SEEN AMBULATORY AT CHANGE OF SHIFT. IV SITE TO THE /RAC PATENT, NS @ 60ML/HR. NO REDNESS, SWELLING OR PAIN NOTED. PT ON ZOSYN. ALL COMFORT AND SAFETY MEASURES PROVIDED FOR, CALL LIGHT WTIHIN REACH, BED IN LOWEST POSITION, WILL CONTINUE TO MONITOR.
--- NOTE | 2019-02-28 20:00 | NUR ---
MEDICATED PT WITH NORCO PO FOR ABD PAIN, PT REPORTS PAIN IN LLQ ABD, ALL COMFORT AND SAFETY MEASURESVPROVIDED FOR, CALL LIGHT WITIHN REACH, BED IN LOWEST POSITION, WILL CONTINUE TO MONITOR.
[2019-02-28 20:42] VITALS: BP 148/69
--- NOTE | 2019-02-28 23:30 | NUR ---
ADMINISTERED PT ZOSYN PER ORDER, PT RESTING IN BED WITH EYES CLOSED, NO S/S OF PAIN NOTED. PT REPORTS ALL COMFORT MEASURES ARE PROVIDED FOR, CALL LIGHT WITHIN REACH, BED IN LOWEST POSITION, WILL CONTINUE TO MONITOR.
--- NOTE | 2019-03-01 02:05 | NUR ---
MEDICATED PT WITH NORCO PER REQUEST. ASSESSED PT COLOSTOMY BAG FOR OUTPUT, PT STATES HE JUST EMPTIED IT IN TOLIET, PER PT, STOOL WAS BROWN, LIQUIDY IN TEXTURE. BAG NOW EMPTY, FREE OF GAS. SKIN CDI. IV SITE PATENT TO /RAC NS @ 60ML/HR. NO REDNESS, SWELLING OR PAIN NOTED. CALL LIGHT WITHIN REACH, BED IN LOWEST POSITION, WILL CONTINUE TO MONITOR.
--- NOTE | 2019-03-01 05:10 | NUR ---
PT RESTED IN INTERVALS DURING SHIFT, NO ACUTE CHANGES OCCURRING OVERNIGHT. PT AMBULATED TO RESTROOM TO EMPTY HIS COLOSTOMY BAG, REPORTING LIQUIDY/BROWN STOOL. PT MEDICATED X2 WITH NORCO WITH GOOD RELIEF. PT CALM AND COOPERATIVE WITH CARE AT THIS TIME,. CALL LIGHT WITHIN REACH, BED IN LOWEST POSITION, WILL CONTINUE TO MONITOR.
[2019-03-01 05:30] VITALS: BP 132/70
[2019-03-01 06:42] LABS: CALCIUM 8.3 mg/dL (8.5-10.1); CARBON DIOXIDE 29.5 mmol/L (21-32); CHLORIDE SERUM 104 mmol/L (98-107); CREATININE SERUM 1.2 mg/dL (0.7-1.3); GFR1 > 60 mL/min; GLUCOSE SERUM 94 mg/dL (74-106); POTASSIUM SERUM 3.7 mmol/L (3.5-5.1); SODIUM SERUM 139 mmol/L (136-145)
[2019-03-01 06:53] LABS: BASOPHIL % 0.4 % (0-2)
[2019-03-01 07:03] LABS: RED CELL DISTRIBUTION WIDTH 15.6 % (11.5-14.5)
[2019-03-01 07:04] LABS: PLATELET COUNT 524 x10^3mcL (130-400)
--- NOTE | 2019-03-01 07:20 | NUR ---
RECEIVED REPORT FROM BEAMER OPERATOR NURSE PATIENT LYING IN BED ASLEEP BUT AROUSABLE. PATIENT DENIES ANY PAIN AT THIS TIME. COLOSTOMY BAG INTACT NO REDNESS OR EDEMA NOTED. NO S/S OF INFECTION AT STOMA. IV L HAND AND RAC PATENT AND INTACT RAC INFUSING NO S/S OF EDEMA OR REDNESS. PATIENT DENIES ANY SOB AT THIS TIME. ALL QUESTIONS AND CONCERNS ADDRESSED AT THIS TIME. BED IN LOW POSITION CALL LIGHT WITHIN REACH. WILL CONTINUE TO MONITOR.
--- NOTE | 2019-03-01 08:29 | NUR ---
PATIENT C/O PAIN IN ABD 11/16 ADMINISTERED NORCO PO PER JUN FOR MODERATE PAIN. PATIENT TOLERATED WELL NO ADVERSE REACTIONS NOTED. PATIENT REQUESTED TEACHING OF PROPER PLACEMENT OF COLOSTOMY BAG. WILL FOLLOW UP WITH WOUND CARE NURSE. ALL NEEDS ATTENDED TO AT THIS TIME. BED IN LOW POSITION AND CALL LIGHT IS WITHIN REACH. WILL REASSESS PAIN AND CONTINUE TO MONITOR.
[2019-03-01 09:46] VITALS: BP 135/75
--- NOTE | 2019-03-01 11:05 | NUR ---
PATIENT L WRIST IV TUGGED OUT. CATHETER INTACT DRESSING APPLIED. NO S/S OF EDEMA OR REDNESS. ALL NEEDS ATTENDED TO AT THIS TIME. SAFETY PRECAUTIONS IN PLACE. WILL CONTINUE TO MONITOR.
--- NOTE | 2019-03-01 12:22 | NUR ---
ADMINISTERED ANTIBIOTICS PER MAR PATIENT SITTING UP IN BED WITH FAMILY AT BEDSIDE. PATIENT DENIES ANY PAIN AT THIS TIME. PATIENT AGITATED AFTER SEEING ELLIS PT STATED " I DONT FEEL READY TRY GO HOME" BUT ALSO STATED "DR QUIROGA SAYS SHE IS NOT THE ONE TO MAKE THAT DECISION" PATIENT FELT HE NEEDED TO EAT REG FOOD AND WOUND TEACHING. ADDRESSED PATIENT CONCERNS PT VERBALIZED UNDERSTANDING. ALL QUESTIONS AND CONCERNS ADDRESSED AT THIS TIME. NO ADVERSE REACTIONS NOTED WITH MEDS. BED IN LOW POSITION CALL LIGHT WITHIN REACH. WILL CONTINUE TO MONITOR.
--- NOTE | 2019-03-01 12:45 | NUR ---
PATIENT SITTING UP IN BED EATING LUNCH TOLERATING DIET WELL. PATIENT DENIES PAIN AT THIS TIME. NO S/S OF RESPIRATORY DISTRESS. ALL NEEDS ATTENDED TO AT THIS TIME BED IN LOWEST POSITION NAYAN LIGHT WITHIN REACH. WILL CONTINUE TO MONITOR.
--- NOTE | 2019-03-01 14:22 | NUR ---
PATIENT C/O ABD PAIN 7/10 THAT IS EXACERBATED BY MOVEMENT. ENCOURAGED PATIENT TO REST IN BED AND DIMM THE LIGHTS FOR COMFORT. ALL NEEDS ATTENDED TO AT THIS TIME. BED IN LOWEST POSITION CALL LIGHT WITHIN REACH. WILL REASSESS PAIN AND CONTINUE TO MONITOR.
--- NOTE | 2019-03-01 16:14 | NUR ---
PATIENT IV ON RAC TUGGED OUT WHILE PATIENT WAS CHANGING CATHETER INTACT DRESSING APPLIED. NO EDEMA NOTED. INSERTED NEW IV ON LFA 1ST ATEMPT PATIENT TOLERATED WELL IV FLUSHES AND INTACT SITE WNL. ALL NEEDS ADDRESSED AT THIS TIME. BED IN LOWEST POSITION CALL LIGHT WITHIN REACH. WILL CONTINUE TO MONITOR.
[2019-03-01 17:02] VITALS: BP 129/76
--- NOTE | 2019-03-01 18:41 | NUR ---
PATIENT SITTING UP IN BED WATCHING TV WITH FAMILY AT BEDSIDE. PATIENT DENIES ANY PAIN AT THIS TIME. STOMA COVERED WITH OSTOMY BAG CLEAN DRY AND INTACT. 250 OUTPUT OF THICK BROWNISH GREEN LIQUID. NO S/S OF RESPIRATORY DISTRESS NOTED. BED IN LOWEST POSITION AND CALL LIGHT IS WITHIN REACH. ALL NEEDS ADDRESSED WILL ENDORSE CARE TO COLLEGE ATHLETE NURSE.
--- NOTE | 2019-03-01 19:30 | NUR ---
RECEIVED REPORT FROM DAY SHIFT RN. PT RESTING IN BED. AA&O X4. NO SOB NOTED ON ROOM AIR. NO C/O PAIN AT THIS TIME. COLOSTOMY BAG TO RLQ WITH LIGHT BROWN/GREENISH OUTPUT. IV TO LFA, NS INFUSING. SAFETY MEASURES IN PLACE. BED IN LOWEST POSITION. SIDE RAILS UP X2. INSTRUCTED PT TO USE THE CALL LIGHT FOR ASSISTANCE. CALL LIGHT WITHIN REACH.
[2019-03-01 20:38] VITALS: BP 125/63
--- NOTE | 2019-03-01 21:24 | NUR ---
PT C/O ABD PAIN 10/16. MEDICATED WITH NORCO.
--- NOTE | 2019-03-02 03:50 | NUR ---
NORCO GIVEN FOR ABD PAIN 10/16.
[2019-03-02 05:50] VITALS: BP 127/69
--- NOTE | 2019-03-02 06:35 | NUR ---
PT RESTED IN INTERVALS THROUGHOUT SHIFT. NO ACUTE CHANGES NOTED. C/O ABD PAIN X2. MEDICATED WITH NORCO. PT EMPTIED COLOSTOMY BAG. 250 ML LIGHT BROWN THICK LIQUID OUTPUT. SAFETY MEASURES MAINTAINED. ALL NEEDS ATTENDED TO. CALL LIGHT WITHIN REACH. BROTHER AT BEDSIDE. WILL ENDORSE CONTINUITY OF CARE TO ONCOMING RN.
[2019-03-02 07:00] LABS: CALCIUM 8.1 mg/dL (8.5-10.1); CARBON DIOXIDE 29.9 mmol/L (21-32); CHLORIDE SERUM 104 mmol/L (98-107); CREATININE SERUM 1.1 mg/dL (0.7-1.3); GFR1 > 60 mL/min; GLUCOSE SERUM 94 mg/dL (74-106); MAGNESIUM 1.8 mg/dL (1.8-2.4); PHOSPHOROUS 3.1 mg/dL (2.5-4.9); POTASSIUM SERUM 3.7 mmol/L (3.5-5.1); SODIUM SERUM 141 mmol/L (136-145)
[2019-03-02 07:03] LABS: BASOPHIL % 0.1 % (0-2)
--- NOTE | 2019-03-02 07:05 | NUR ---
RECEIVED BEDSIDE REPORT FROM ANVILSMITH NURSE AT THIS TIME. PATIENT RESTING COMFORTABLY IN BED. NO APPARENT DISTRESS OR DISCOMFORT NOTED. BREATHING EVEN AND UNLABORED. NO RESPIRATORY DISTRESS NOTED. PATIENT DENIES SHORTNESS OF BREATH. PATIENT DENIES CHEST PAIN/PRESSURE. S/P LAP EXP COLOSTOMY REVISION 02/24 WITH ABD INCISION WITH LOPEZ AND DRESSING CDI. COLOSTOMY BAG TO RLQ STOMA RED. IV PATENT AND INTACT. ALL QUESTIONS AND CONCERNS ADDRESSED. ALL NEEDS ATTENDED TO. WILL CONTINUE TO MONITOR
[2019-03-02 07:23] LABS: PLATELET COUNT 536 x10^3mcL (130-400); RED CELL DISTRIBUTION WIDTH 15.5 % (11.5-14.5)
[2019-03-02 08:26] VITALS: BP 144/76
--- NOTE | 2019-03-02 09:56 | NUR ---
MEDICATIONS ADMINISTERED AT THIS TIME. PATIENT TOLERATED WELL. NO APPARENT ADVERSE EFFECTS NOTED. ALL NEEDS ATTENDED TO. WILL CONTINUE TO MONITOR
--- NOTE | 2019-03-02 10:04 | NUR ---
PATIENT C/O 10/16 ABD SURGICAL PAIN. PATIENT MEDICATED WITH NORCO PO PRN. PATIENT TOLERATED WELL. NO APPARENT ADVERSE EFFECTS NOTED. ALL NEEDS ATTENDED TO. WILL CONTINUE TO MONITOR
--- NOTE | 2019-03-02 12:45 | NUR ---
PATIENT SITTING UP IN BED EATING LUNCH AT THIS TIME. PATIENT TOLERATING DIET WELL. NO APPARENT DISTRESS OR DISCOMFORT NOTED. ALL NEEDS ATTENDED TO. WILL CONTINUE TO MONITOR
--- NOTE | 2019-03-02 16:48 | NUR ---
PATIENT C/O ABD INCISION PAIN AT THIS TIME. PATIENT MEDICATED WITH NORCO PO PRN. PATIENT TOLERATED WELL. NO APPARENT ADVERSE EFFECTS NOTED. ALL NEEDS ATTENDED TO. WILL CONTINUE TO MONITOR
[2019-03-02 17:02] VITALS: BP 143/79
--- NOTE | 2019-03-02 18:42 | NUR ---
PATIENT RESTING COMFORTABLY IN BED AT THIS TIME. BROTHER AT BEDSIDE. NO APPARENT DISTRESS OR DISCOMFORT NOTED. IV PATENT AND INTACT INFUSING NS @60ML/HR. ABD INCISION DRESSING CDI. COLOSTOMY TO RLQ INTACT. ALL QUESTIONS AND CONCERNS ADDRESSED. ALL NEEDS ATTENDED TO. SAFETY PRECAUTIONS MAINTAINED. WILL ENDORSE ALL CARE TO TOOL CHASER NURSE
--- NOTE | 2019-03-02 19:30 | NUR ---
RECEIVED PT RESTING IN BED, NO ACUTE DISTRESS NOTED. AOX4, DENIES HARPER/DIZZINESS. MEDSURG PT, DENIES CP. PULSES PALPABLE BILAT, DENIES NUMBNESS/TINGLING IN FEET. SCROTAL EDEMA NOTED. PT DENIES PAIN, MINIMAL DYSURIA. RESP EVEN AND UNLABORED ON RA, DENIES SOB. ABD SOFT, ROUND, S/P 02/24 EXP LAP: COLOSTOMY REVISION, ABD INCISION X1. CLOSED WITH LOPEZ. COVERED WITH DSG CDI. PT WITH RLQ COLSTOMY BAG IN PLACE, DRAINING SOFT, BROWN/GREENISH STOOL. PT TOLERATED HALF OF DINNER, PT VOIDS, BRP. AMBULATORY. IV SITE TO THE LH/RAC PATENT, NS @ 60ML/HR. NO REDNESS, SWELLING OR PAIN NOTED. PT ON ZOSYN. ALL COMFORT AND SAFETY MEASURES PROVIDED FOR, CALL LIGHT WTIHIN REACH, BED IN LOWEST POSITION, WILL CONTINUE TO MONITOR.
[2019-03-02 22:59] VITALS: BP 134/70
[2019-03-03 05:03] VITALS: BP 109/51
--- NOTE | 2019-03-03 05:10 | NUR ---
PT RESTED IN INTERVALS DURING SHIFT, NO ACUTE CHANGES OCCURRING OVERNIGHT. PT PASSING STOOL THROUGH COLOSTOMY BAG, SOFT, SEMI LIQUID, TOLERATING MECHANICAL SOFT, CHOPPED DIET. DENIES N/V/D. PT COLOSTOMY BAG REMAINS SECURE TO RLQ, NO REDNESS, SWELLING OR PAIN NOTED. EDUCATION PROVIDED IN REGARDS TO CHANGING THE BAG WHEN NEEDED, HOW TO CUT AND SECURE IT TO SKIN. ALL COMFORT AND SAFETY MEASURES PROVIDED FOR, CALL LIGHT WITHIN REACH, BED IN LOWEST POSITION, WILL CONTINUE TO MONITOR.
[2019-03-03 06:26] LABS: BASOPHIL % 0.1 % (0-2)
[2019-03-03 06:55] LABS: CALCIUM 8.3 mg/dL (8.5-10.1); CARBON DIOXIDE 26.6 mmol/L (21-32); CHLORIDE SERUM 105 mmol/L (98-107); CREATININE SERUM 1.2 mg/dL (0.7-1.3); GFR1 > 60 mL/min; GLUCOSE SERUM 91 mg/dL (74-106); POTASSIUM SERUM 3.9 mmol/L (3.5-5.1); SODIUM SERUM 142 mmol/L (136-145)
--- NOTE | 2019-03-03 07:15 | NUR ---
RECEIVED PATIENT AWAKE/ALERT IN BED, NO DISTRESS NOTED. NO C/O PAIN AT THIS TIME. POC EXPLAINED. NEEDS ADDRESSED. CALL LIGHT WITHIN REACH.
[2019-03-03 08:05] LABS: PLATELET COUNT 534 x10^3mcL (130-400); RED CELL DISTRIBUTION WIDTH 15.7 % (11.5-14.5)
[2019-03-03 08:06] VITALS: BP 138/65
--- NOTE | 2019-03-03 08:45 | NUR ---
PATIENT RESTING IN BED, STUDENT REESE WITH INSTRUCTOR PREP MEDICATION FOR PATIENT AT THIS TIME. PATIENT C/O ABD PAIN AND NORCO WILL BE GIVEN BY JONATHON LEIGH.
--- NOTE | 2019-03-03 09:27 | NUR ---
MAKSIM LUTZ WAS INFORM PATIENT REQUEST HOME MED DICLOFENAC 75MG PO BID TO BE CONTINUE, PER PATIENT ASSESSMENT COORDINATOR WILL ORDER.
[2019-03-03 12:10] VITALS: BP 137/75
--- NOTE | 2019-03-03 12:13 | NUR ---
PATIENT AWAKE/ALERT IN BED NO COMPLAIN, EDDIE ICE CHIPS PER REQUEST. VISITOR REMAIN AT BEDSIDE. NEEDS MET. CONT TO MONITOR.
--- NOTE | 2019-03-03 13:27 | NUR ---
Follow-up Nutrition Assessment: 207/B BRENNA HENAO IA HR Dx: Prolapse bowel, SBO PMHx: HTN Labs: (03/03) CA 8.3L, HGB 9.5L, Meds: Advil, Flomax, norco, NS, Zofran Diet: Mechanically soft- chopped PO Intake: (03/03) breakfast 90%, (03/02) dinner 100%, breakfast, lunch 75% Weights: (02/27) 122 kg, (03/03) 122.1 kg I/Os: (03/02) 1380/ 700 (680) Skin: and incision Roshan: 21 Edema: trace BLE, scrotal GI: RLQ colostomy, semi soft brown stool Last BM: 03/03 RD Note (03/03): Patient said that he ate of his breakfast this morning and said that he gets 'full' fast. Patient also mentioned that he is afraid of eating as he thinks that his stomach might not tolerate it. Told the patient that it might take time for his body to heal and slowly progress from soft- textured food to regular food. [facility] handout on 'Hypertension Nutrition Therapy' was provide to the patient. Patient verbalized understanding and did not have any diet related questions at this time. Estimated Nutritional Needs Based on ideal body weight (78 kg) Energy: 7132-7550 kcal/day (25-30 kcal/kg for maintenance) Protein: 94-109 g/day (1.2-1.4 g/kg for post- op) Fluid: 5254-6471 mL/day (1 mL/kcal) Nutrition Diagnosis: 1. Inadequate oral intake related to restrictive diet order 2/2 surgery as evidenced by self- reported PO <75% (ongoing) Intervention: 1. Recommend continuing mechanically soft- chopped diet at this time. Monitor/Evaluate: Goal: Have pt meet at least 75% of estimated needs Monitor: PO intake, Labs, GI function F/U in 7 days as low risk 03/10
--- NOTE | 2019-03-03 13:27 | NUR ---
1. Recommend continuing mechanically soft- chopped diet at this time.
--- NOTE | 2019-03-03 16:14 | NUR ---
NATE FLORENTINO AT BEDSIDE SPOKE WITH PATIENT AND HIS BROTHER AT BEDSIDE, CM INFORM PATIENT SUPPLIES FOR COLOSTOMY IS ARRANGED. WHEN CM LEFT PATIENT STILL HAVE QUESTION ABOUT TRANSPORTATION AND HOTEL VOUCHER, CALLED MISHEL SULLIVAN BACK IN THE ROOM TO ANSWER PATIENT QUESTION. IV ASSESS NOTICE SLIGHT SWELLING BUT PER PATIENT NO PAIN, STOP IV PUMP WILL RESTART NEW IV WHEN PATIENT DONE TALKING TO CM.
[2019-03-03 16:23] VITALS: BP 139/86
--- NOTE | 2019-03-03 16:38 | NUR ---
Patient resting in bed calm at this time, no upset anymore, [place] 1 tab po given for c/o abdominal pain 10/16. Needs met. Cont to monitor
--- NOTE | 2019-03-03 17:38 | NUR ---
PATIENT RESTING IN BED REPORT PAIN IS BETTER, 3/10 ABD PAIN. IV TO LFA #22G WITH RETURN BLOOD, CONT IVF ORDERED, CONT TO MONITOR.
--- NOTE | 2019-03-03 18:29 | NUR ---
PATIENT RESTING IN BED NO COMPLAIN, BROTHER REMAIN AT BEDSIDE. CONT TO MONITOR.
--- NOTE | 2019-03-03 19:20 | NUR ---
RECEIVED REPORT FROM SOLE ONEAL. PT IS AAOX4 AND DENIES HEADACHE OR DIZZINESS AT THIS TIME. PT IS MED-SURG AND DENIES CHEST PAIN OR PRESSURE AT THIS TIME. PT PULSES ARE PALPABLE AND CAP REFILL <3 SEC. PT HAS TRACE EDEMA TO LLE AND SCROTAL AREA. PT LUNG SOUNDS CTA ON RA. PT BREATHING IS EVEN AND UNLABORED. PT ABD IS SOFT AND ROUND. PT BOWEL SOUNDS ARE ACTIVE X4. PT HAS A COLOSTOMY BAG TO THE RLQ DRAINING SEMI-SOFT BROWN STOOL. PT DENIES N/V/D/ AT THIS TIME. PT IS AMBULATORY. PT HAS ABD INCISIONS WITH LOPEZ AND DRESSING, CDI. PT IV PATENT, INTACT, AND WNL. FAMILY IS AT BEDSIDE. CALL LIGHT WITHIN REACH. BED IN LOWEST POSITION. SIDE RAILS X2 UP. WILL CONTINUE TO MONITOR.
[2019-03-03 20:35] VITALS: BP 133/74
--- NOTE | 2019-03-03 22:43 | NUR ---
PT C/O ABD PAIN OF 8/10. PER MAR, ADMINISTERED NORCO FOR PAIN. WILL REASSESS PAIN IN ONE HOUR. WILL CONTINUE TO MONITOR.
--- NOTE | 2019-03-03 23:43 | NUR ---
PT SLEEPING. PT BREATHING EVEN AND UNLABORED. BROTHER AT BEDSIDE. PT DENIES ANY PAIN AT THIS TIME. WILL CONTINUE TO MONITOR.
--- NOTE | 2019-03-04 02:45 | NUR ---
PT SLEEPING. PT BREATHING EVEN AND UNLABORED. NO ACUTE DISTRESS NOTED. CALL LIGHT WITHIN REACH. BED IN LOWEST POSITION. SIDE RAILS X2 UP. WILL CONTINUE TO MONITOR.
--- NOTE | 2019-03-04 04:42 | NUR ---
PT C/O ABD PAIN. PER JUN, ADMINISTERED NORCO FOR PAIN. WILL REASSESS PAIN IN ONE HOUR. WILL CONTINUE TO MONITOR.
--- NOTE | 2019-03-04 05:00 | NUR ---
PT SLEPT THROUGHOUT THE NIGHT. PT COMPLIED WITH NURSING CARE THROUGHOUT THE SHIFT. NO ACUTE DISTRESS NOTED DURING THE SHIFT. COMFORT AND SAFETY MEASURES MAINTAINED DURING THE SHIFT. ALL NEEDS AND CONCERNS ADDRESSED. WILL ENDORSE CARE TO DAY SHIFT NURSE.
[2019-03-04 05:58] VITALS: BP 129/71
[2019-03-04 06:49] LABS: BASOPHIL % 0.4 % (0-2)
[2019-03-04 06:56] LABS: CALCIUM 8.5 mg/dL (8.5-10.1); CARBON DIOXIDE 24.9 mmol/L (21-32); CHLORIDE SERUM 104 mmol/L (98-107); CREATININE SERUM 1.1 mg/dL (0.7-1.3); GFR1 > 60 mL/min; GLUCOSE SERUM 94 mg/dL (74-106); POTASSIUM SERUM 3.9 mmol/L (3.5-5.1); SODIUM SERUM 139 mmol/L (136-145)
[2019-03-04 07:03] LABS: RED CELL DISTRIBUTION WIDTH 15.9 % (11.5-14.5)
[2019-03-04 07:04] LABS: PLATELET COUNT 531 x10^3mcL (130-400)
--- NOTE | 2019-03-04 07:17 | NUR ---
ENDORSED CARE TO TORY ONEAL. ALL QUESTIONS AND CONCERNS ADDRESSED.
--- NOTE | 2019-03-04 08:00 | NUR ---
RECEIVED PATIENT WHO IS OOB AND TO THE RESTROOM ON FIRST PASS AND NOW AT IN BED AND HAS DRESSING OT THE ABOVE THE COLOSTOMY AND THE COLOSTOMY IS IN WORKING ORDER IWTH SEMI LIQUID STOOL IN THE BAG. PATIENT REQUESTED A NEW BAG BUT WANTS TO CHANGE HIMSELF. PATIENT GIVEN THE ITEMS HE REQUESTED AND OFFERED TO HELP HIM IF HE NEEDS ASSIST. PATIENT AHS DIMINISHED BUT CLEAR BREATH SOUND AND BOWEL SOUNDS ACTIVE AND ABDOMEN IS DISTENDED AND MODERATELY FIRM. NOTED THE PAITEN THAS EDEMA OF ONE PLUS TO THE LOWER EXTREMITIES AND HAS BEEN WITH FAMILY AT BEDSIDE. HE IS APPARENTLY HOMELESS PER REPORT. NO COMPLAINTS OF PIAN AT THIS TIME. VITALS ARE AT 97.3, 62, 20, 129/71, 96% ON ROOM AIR. PATIENT WITH NOTED LABS OF PLT AT 531, H AHD OF 9.5/30HE HAS BACTERIA IN THE URINE AND TRACE PROTIEN WELL. CHEST XRAY WAS NEGATIVE. AND PATIENT HAS BEEN S/P EX LP WITH PARTIAL HERNIA REPIAR AND PARTIAL TRANVERSE REACTION OF AND REVISION OF THE COLOSTOMY.
[2019-03-04 09:25] VITALS: BP 96/74
[2019-03-04] MEDS ORDERED: FLO4 PO (10:14)
[2019-03-04 10:55] VITALS: BP 96/74
--- NOTE | 2019-03-04 11:15 | NUR ---
PATIENT HAS BEEN ANXIOUS HE IS TO BE DISCHARGED AND HE DOES NOT FEEL HE IS READY TO LEAVE YET. HIS BROTHER AND HIMSELF ARE WITH MULTIPLE DEMANDS FOR HIS DISCHARGE AND BASICALLY THEY ARE GOING TO END UP IN THE STREET DUE TO THEY ARE HOMELESS. STAFF IS AWARE AND LEADING FIREFIGHTER SPOKE WITH THE PATINET ABOUT HIS RESOURSES AND THE REVIT DRAFTER WELL. PATIENT IS ANXIOUS BUT THE BROTHER IS HIGHLY AGITATED AND THE LEADING FIREFIGHTER FEELS HE IS THREATENING AND WORRIED OF ESCALATION. SECURITY HAS BEEN CALLED AND THE BROTHER TAKEN ASIDE. AWAITING FOR KRISTA RUANO TO SPEAK WITH THE PATIENT AND FOR WOUND CARE TO ALSO SEE. PATIENT WAS ASSURED BY THE REVIT DRAFTER THAT HIS CASE WILL BE ADDRESSED. PATIENT HAS BEEN TAKING CARE OF HIS COLOSTOMY PRIOR AND THE ISSUE OF A WOUND FOR THE REVISION IS INDICATED AND WOUND CARE FOR PROPER HEALING IS INDICATED PER THE REVIT DRAFTER.
--- NOTE | 2019-03-04 12:24 | NUR ---
REQUESTED PAIN MEDICATION AND GAVE NORCO FOR PAIN. WILL MONITOR FOR EFFECTIVENESS. PATIENT IS STILL VERBALIING ABOUTTHE CONFRONTATION WITH THE BROTHER AND AUTOMOTIVE TEACHER. HE IS ANXIOUS HIS BROTHER WAS ASKED TO LEAVE. PATIENT IS DETERMINED NOT TO GO HOME TODAY HE FEELS IT IS TO MUCH FOR HIM TO CARE FOR HIMSELF ON THE OUTSIDE. JUST NOW THE AUTOMOTIVE TEACHER STATES WE ARE TO PURSUE THE DISCHARGE HE HAS NO COVERAGE FROM THE INSURANCE ON STAYING ANY LONGER IF THE PHYSICIAN FEELS HE IS MEDICALLY CLEAR TO GO HOME TODAY. WILL ADVISE THE PATIENT OF THIS.
--- NOTE | 2019-03-04 13:44 | NUR ---
PT.IS AAX4, SITTING UP AT BED SIDE. PER PRIMARY RN COLOSTOMY BAG CHANGED BY PT. THIS MORNING AND CWOUND CARE WAS DONE WITH GUIDANCE, PT. ABLE TO DO WOUND CARE AND COLOSTOMY CARE, REINFORCEMWNT TEACHING DONE, ALL QUESTIONS ANSWERED, RECHECK COLOSTOMY SITE, STOMA BEEFY RED FUNCTIONING WITH SOFT SMEAR STOOL OUTPUT. FOLLOW UP APPOINTMENTS ARRANGED BY FISH CULTURIST. PT. IS INFORMED AND VERBALIZES UNDERSTANDING TO ALL DISCHARGE WOUND CARE INSTRUCTIONS. PRIMARY RN ALREADY HANDED TO PT. WITH EXTRA WOUND CARE AND COLOSTOMY CARE SUPPLIES. PT. IS AT STABLE CONDITION, GETTING READY AND WAITING FOR REALTIME REPORTER.
--- NOTE | 2019-03-04 13:55 | NUR ---
SEEN BY THE [facility] NURSE AND HAS BEEN SEEN AGAIN BY MASONRY SUPERVISOR. PATIENT DOES NTO MEET THE CRITERIA TO STAY AND DISCHARGE INSTRUCTIONS GIVEN. PATIENT ISTO COMPLIANCE COUNSEL HIS PRESCRIPTION AT [facility] AND TO TAKE STARTING TOMORROW.
--- NOTE | 2019-03-04 14:47 | NUR ---
BROTHER WAS ALLOWED TO RETURN TO THE ROOM TO ASSSIST THE PATIENT IS PACKING UP HIS BELONGINGS FOR DISCHARGE. THERE WAS A LOT OF PACKING UP TO DO AND MULTIPLE BAGS AND PAPERS AND CLOTHING NOTED. THEY DO SEEM IF THEY ARE TAKING A LONG TIME AND MAYBE BECAUSE HE DOES NOT WANT TO BE DISCHARGED YET. PER CARDIOLOGY PHYSICIAN ASSISTANT THERE IS NO CRITERIA THAT PATIENT CAN STAY AFTER CLEARED BY MEDICINE. PATIENT HAS REFUSED LONG-TERM AND HAS REFUSED SNF. CONTINUED TO PERIODICALLY CHECK IN ON THE PATIENT WHO WASHED UP AGAIN. SUPPLIES OFFERED AND PATIENT IS TO FOLLOW UP WITH DR QUIROGA AND DR GIBBS INDICATED. HE HAS HIS SUPPLIES AT HIS [facility] [place] THE PATIENT HAS BEEN USING FOR SOME TIME.
--- NOTE | 2019-03-04 15:27 | NUR ---
STILL PACKING UP AND STAFF IS STILL WAITING TO DISCHARGE THE PATIENT.
--- NOTE | 2019-03-04 16:27 | NUR ---
PATIENT FINALLY WAS ABLE TO BE DISCHARGED. HE AND HIS BROTHER WERE ASKING FOR CAB AND BUS VOCHERS THEY WERE LEAVING AND STILL COMPLAINED THAT THEY SHOULD BE ABLE TO STAY LONGER. THIS WAS ALREADY DISCUSSED IN LENGTH AND THEY ARE CLEAR FOR DISCHARGE AND HE IS HAS NO LIMITATION EXCEPT HEAVING LIFTING. AND ABLE TO AMBULATE AND HAS NEAR FULL FUNCTION AND MEETS THE CRITERIA FOR DISCHARGE TO HOME. DISPITE THE PATIENT PROTESTS AND THAT THE BROTHER WAS ALSO STAYING AND IS ALSO HOMELESS THE PATIENT WAS TRUELY ATTEMPTING TO FIND REASONS THEY COULD STAY LONGER. DISCHARGED TO HOME AFTER THREE HOURS OF DELAY AND PACKING UP IF HIS BELONGINGS. PATIENT WAS ABLE TO CHANGE HIS OSTOMY BAG AND THE DRESSING TO THE ABDOMEN WITHOUT DIFFICULTY.
== END 2019-03-04 16:05 | disposition home or self-care (01) | DRG 230 ==
LOC: ED 12:34 → MU 15:37 → DU 15:37 → MU 17:14
PROVIDERS: Emergency Medicine; General Practice; Surgery; ADMIT Internal Medicine
PROC: 0DB80ZZ Excision of Small Intestine, Open Approach (ICD-10-PCS; 2019-02-24)
PROC: 0WQF0ZZ Repair Abdominal Wall, Open Approach (ICD-10-PCS; 2019-02-24)
PROC: 0DBU0ZZ Excision of Omentum, Open Approach (ICD-10-PCS; 2019-02-24)
PROC: 0DBL0ZZ Excision of Transverse Colon, Open Approach (ICD-10-PCS; principal; 2019-02-24 06:30)
DX: K43.3 Parastomal hernia with obstruction, without gangrene (principal); N17.0 Acute kidney failure with tubular necrosis; R31.9 Hematuria, unspecified; K40.20 Bilateral inguinal hernia, without obstruction or gangrene, not specified as recurrent; I10 Essential (primary) hypertension; F32.9 Major depressive disorder, single episode, unspecified; M10.9 Gout, unspecified; K20.0 Eosinophilic esophagitis; E66.9 Obesity, unspecified; Z87.442 Personal history of urinary calculi; Z68.33 Body mass index [BMI] 33.0-33.9, adult; Z87.891 Personal history of nicotine dependence; Z83.3 Family history of diabetes mellitus; Z72.89 Other problems related to lifestyle; Z23 Encounter for immunization; Z79.899 Other long term (current) drug therapy
CPT/HCPCS: 82962; 90658; G0378; J0295; J0330; J0690; J1170; J1885; J2250; J2270; J2405; J2543; J2704; J2710; J3010; J3490; J7030; J7042; J7120

== ENCOUNTER 2019-03-05 22:52 | Emergency (ER) | payer OTHER ==
[~2019-03-05] VITALS: Ht 180.3 cm; Wt 114.8 kg
[~2019-03-05 22:52] MED LIST: DICLOFENAC POTA50 MG PO; FLO4 PO; ZESTRIL5 MG PO
[2019-03-05 22:57] VITALS: Ht 180.3 cm; Wt 114.8 kg
[2019-03-05 23:54] LABS: BASOPHIL % 0.5 % (0-2); PLATELET COUNT 631 x10^3mcL (130-400)
[2019-03-05 23:55] LABS: CALCIUM 8.5 mg/dL (8.5-10.1); CARBON DIOXIDE 24.7 mmol/L (21-32); CHLORIDE SERUM 104 mmol/L (98-107); CREATININE SERUM 1.3 mg/dL (0.7-1.3); GFR1 > 60 mL/min; GLUCOSE SERUM 90 mg/dL (74-106); POTASSIUM SERUM 3.7 mmol/L (3.5-5.1); SODIUM SERUM 141 mmol/L (136-145)
[2019-03-06 00:02] LABS: ALKALINE PHOSPHATASE 82 U/L (46-116); ALT/SGPT 47 U/L (16-63); AST/SGOT 20 U/L (15-37); BILIRUBIN TOTAL 0.4 mg/dL (0.20-1.00); LIPASE 136 IU/L (73-393); TOTAL PROTEIN, SERUM 7.7 g/dL (6.4-8.2)
[2019-03-06 00:03] LABS: ALBUMIN 2.6 g/dL (3.4-5.0)
[2019-03-06 05:49] VITALS: BP 128/64
== END 2019-03-06 05:50 | disposition home or self-care (01) ==
LOC: ED 22:52
PROVIDERS: Emergency Medicine
DX: R10.9 Unspecified abdominal pain (principal); Z93.3 Colostomy status; I10 Essential (primary) hypertension; Z87.442 Personal history of urinary calculi; F32.9 Major depressive disorder, single episode, unspecified
CPT/HCPCS: A4371; J2270; J2405; Q9967

== ENCOUNTER 2019-03-12 04:29 | Inpatient (IN) | payer OTHER ==
[~2019-03-12] VITALS: Ht 180.3 cm; Wt 108.9 kg
[2019-03-12 04:44] VITALS: Ht 180.3 cm; Wt 108.9 kg
--- NOTE | 2019-03-12 05:32 | NUR ---
PT IS REQUESTING PAIN MEDS. PT AWARE MEDS ADMINISTRATION PENDING EVAL/ORDERS BY ERP. PT AGREED AND VERBALIZED UNDERSTANDING.
--- NOTE | 2019-03-12 05:52 | NUR ---
PT'S SKIN SURROUNDING COLOSTOMY BAG CLEANSED. WILL ATTEMPT TO OBTAIN NEW COLOSTOMY BAG.
--- NOTE | 2019-03-12 06:03 | NUR ---
PT TO CT AT THIS TIME.
--- NOTE | 2019-03-12 06:11 | NUR ---
PT TO ED FROM CT.
[2019-03-12 06:53] LABS: CALCIUM 8.4 mg/dL (8.5-10.1); CARBON DIOXIDE 26.7 mmol/L (21-32); CHLORIDE SERUM 107 mmol/L (98-107); CREATININE SERUM 1.1 mg/dL (0.7-1.3); GFR1 > 60 mL/min; GLUCOSE SERUM 97 mg/dL (74-106); POTASSIUM SERUM 4.5 mmol/L (3.5-5.1); SODIUM SERUM 144 mmol/L (136-145)
[2019-03-12 06:59] LABS: ALKALINE PHOSPHATASE 69 U/L (46-116); ALT/SGPT 22 U/L (16-63); AST/SGOT 16 U/L (15-37); BILIRUBIN TOTAL 0.3 mg/dL (0.20-1.00); LIPASE 244 IU/L (73-393); TOTAL PROTEIN, SERUM 7.9 g/dL (6.4-8.2)
--- NOTE | 2019-03-12 07:02 | NUR ---
COLOSTOMY BAG CHANGED. BLACK TAR SOFT STOOL NOTED. +FOR OCCULT BLOOD PER DR YEUNG, ERP.
--- NOTE | 2019-03-12 07:03 | NUR ---
PT STS HE LIVES IN A MOTEL W/ HIS BROTHER. PT ENCOURAGED TO ASK FOR ASSISTANCE IF NEEDED/CASE MANAGEMENT TO GET COLOSTOMY SUPPLIES OR MEDICATIONS.
[2019-03-12 07:06] LABS: ALBUMIN 2.9 g/dL (3.4-5.0)
--- NOTE | 2019-03-12 07:11 | NUR ---
REPORT GIVEN TO AUKA ONEAL. OPPORTUNITY GIVEN TO ASK QUESTIONS. PT'S CARE COMPLETED BY THIS RN AT THIS TIME.
[2019-03-12 07:12] LABS: RED CELL DISTRIBUTION WIDTH 16.2 % (11.5-14.5)
--- NOTE | 2019-03-12 07:24 | NUR ---
RECEIVED REPORT FROM BRIGHT ONEAL AND ASSUMED CARE OF PATIENT. PT. LAYING ON GURNEY IN POSITION OF COMFORT. BREATHING E/U. NOT IN ANY APPARENT DISTRESS AT THIS TIME. REPORTS PAIN 8/10 AT THIS TIME AND REQUESTING PAIN MED, WILL LET DR. YEUNG KNOW. CALL LIGHT IN REACH. WILL CONTINUE TO MONITOR.
[2019-03-12 07:55] LABS: PLATELET COUNT 673 x10^3mcL (130-400)
[2019-03-12 08:12] LABS: microscopic required? NO
--- NOTE | 2019-03-12 08:16 | NUR ---
REPORT GIVEN TO KAYLI ONEAL FOR FURTHER CARE OF PATIENT. ALL QUESTIONS AND CONCERS ADDRESSED.
[2019-03-12 08:28] LABS: BAND NEUTROPHIL 0 % (0-10); MONOCYTE 4 % (0-7); SEGMENTED NEUTROPHILS 85 % (37-75)
[2019-03-12 08:30] LABS: rbc morphology (normal/abnorm) ABNORMAL (NORMAL)
[2019-03-12 09:00] VITALS: BP 118/70
--- NOTE | 2019-03-12 09:00 | NUR ---
REC PT FROM E.R. ABLE TO AMB TO BED AND INTO BATHROOM. AA/O X4, BREATHING EVEN AND UNLABOARD ON RA, NO ACUTER RESP DISTRESS OR SOB NOTED/ TELE 25 SR NOTED, HR 69. DENIES ANY CP OR PRESSURE. BOWEL SOUNDS ACTIVE IN ALL FOUR QUADS, COLOSTOMY BAY NOTED R MIDLINE OF ABD, DARK STOOL NOTED. VOIDS FREELY, AMB. IV TO THE RAC INTACT AND PATENT/ NS INFUSING AT 100ML/HR, NO REDNESS OR SWELLING NOTED. PER PT IS HOMELESS LIVING AT [place] [id number] [place]. BROTHER AT BEDSIDE. WILL CONTINUE TO MONITOR.
--- NOTE | 2019-03-12 09:00 | NUR ---
PT. TRANSFERED TO TELE FOR FURTHER EVAL AND CARE. PT. AAOX4, TALKING AND RESPONDING APPROPRIATELY, BREATHING E/U. NAD. AMBULATED WITH ASSISTANCE TO ROOM. RN MICELLE PRESENT AND ASSUMED CARE OF PATIENT.
[2019-03-12 09:26] LABS: urine erythrocyte NEGATIVE (NEGATIVE)
[2019-03-12 09:34] LABS: CHOLESTEROL/HDL RATIO 6.9; MAGNESIUM 2.1 mg/dL (1.8-2.4); PHOSPHOROUS 3.4 mg/dL (2.5-4.9)
--- NOTE | 2019-03-12 10:07 | NUR ---
REPORT GIVEN TO RITA FROM G.I.
--- NOTE | 2019-03-12 10:17 | NUR ---
HEPLOCKED PT, TAKEN TO GI FOR PROCEDURE. WILL CONTINUE TO MONITOR WHEN PT RETURNS. BREATHING EVEN AND UNLABORED ON RA, NO ACUTE RESP DISTRESS OR SOB NOTED.
[2019-03-12 10:33] LABS: C REACTIVE PROTEIN 4.1 mg/dL (<=0.9)
[2019-03-12 11:48] LABS: IRON 45 ug/dL (65-170); TOTAL IRON BINDING CAPACITY 277 ug/dL (250-450)
--- NOTE | 2019-03-12 11:54 | NUR ---
PT BACK FROM PROCEDURE. VS STABLE. DENIES ANY CP OR PRESSURE, ABD DISCOMFORT. RECONNECTED NS AT 100 TO THE RAC / TOLERATED WELL. WILL CONTINUE TO MONITOR.
[2019-03-12 11:56] VITALS: BP 125/66
[2019-03-12 16:21] VITALS: BP 137/67
--- NOTE | 2019-03-12 18:00 | NUR ---
PT TOLERATED 100% LUNCH, DENIES ANY N/V AT THIS TIME. WILL CONTINUE TO MONITOR.
--- NOTE | 2019-03-12 18:22 | NUR ---
NO ACUTE CHANGES AT THIS TIME. NO ACUTE RESP DISTRESS OR SOB NOTED. DENIES ANY ABD PAIN OR DISCOMFORT AT THIS TIME. COLOSTOMY BAG INTACT AND PATENT/ TOTAL OUTPUT 150ML/DARK BROWN STOOL. IV TO THE RAC INTACT AND PATENT INFUSING AT 100ML/HR, NO REDNESS OR SWELLING NOTED. CALL LIGHT IN REACH. BED IN LOW POSITION. BROTHER AT BEDSIDE. WILL ENDORSE TO INCOMING RN.
[2019-03-12 19:41] VITALS: BP 130/67
--- NOTE | 2019-03-12 19:52 | NUR ---
PT REFUSED LAXATIVE STQTED " I DON'T WANT MY STOOL SOFT AND STICKY "PAIN MEDS GIVEN PER PT REQUEST . LUNG SOUNDS CTA , ABD SOFT BS ACTIVE X4, COLOSTOMY INTACT WITH SOFT LIGHT BROWN STOOL .PIV INTACT INFUSING WELL, TELE NSR.
--- NOTE | 2019-03-13 04:09 | NUR ---
PT C/O ABD PAIN 11/16 MEDICATE PT WITH NORCO ORDERED.
[2019-03-13 04:54] VITALS: BP 132/77
--- NOTE | 2019-03-13 06:14 | NUR ---
NO CHANGES OF CONDITION NOTED, ALL DUE MEDS GIVEN NO REACTION NOTED , PIV INTACT INFUSING WELL , TELE NSR.
[2019-03-13 06:19] LABS: BASOPHIL % 0.6 % (0-2)
[2019-03-13 06:32] LABS: CALCIUM 8.2 mg/dL (8.5-10.1); CARBON DIOXIDE 26.9 mmol/L (21-32); CHLORIDE SERUM 107 mmol/L (98-107); CREATININE SERUM 1.3 mg/dL (0.7-1.3); GFR1 > 60 mL/min; GLUCOSE SERUM 104 mg/dL (74-106); POTASSIUM SERUM 4.4 mmol/L (3.5-5.1); SODIUM SERUM 142 mmol/L (136-145)
--- NOTE | 2019-03-13 07:30 | NUR ---
PT ENDORSE TO ME THIS MORNING, LAYING IN BED RESTING, AA/O X4 BREATHING EVEN AND UNLABORED ON RA, NO ACUTE RESP DISTRESS OR SOB NOTED. TELE 25 HR 96/DENIES ANY CP OR PRESSURE. COLOSTOMY BAG INTACT AND PATENT/DARK BROWN STOOL NOTED. VOIDS FREELY. AMB. IV TO THE RAC INTACT AND PATENT, INFUSING AT 100ML/HR NO REDNESS OR SWELLING NOTED. CALL LIGHT IN REACH. BED IN LOW POSTITION. WILL CONTINUE TO MONITOR.
[2019-03-13 07:48] VITALS: BP 150/80
[2019-03-13 08:07] LABS: PLATELET COUNT 630 x10^3mcL (130-400)
--- NOTE | 2019-03-13 08:40 | NUR ---
ENDORSE CARE TO JM RIOS.
--- NOTE | 2019-03-13 08:48 | NUR ---
RECIVED HAND OFF REPORT FROM KAYLI ONEAL. PATIENT LAYING IN BED IN NO APPARENT DISTRESS, WITH BROTHER IN ROOM. TELE 25 ON CHEST. ORIETNED TO CALL LIGHT SYSTEM. WILL CONTINUE TO MONITOR
--- NOTE | 2019-03-13 09:54 | NUR ---
DR HUTCHINSON ROUNDED ON PATIENT AND UPDATED ON PLAN. MAR CHANGED AND PATIENT AWARE. DISCONTINUED NORCO. NEED FOR OCCULT BLOOD SAMPLE, WILL OBTAIN
--- NOTE | 2019-03-13 10:30 | NUR ---
PER MAKSIM LUTZ REQUEST COLOSTOMY TEACHING PROVIDES,PT. UNDERSTANDING ALL TEACHING, PT. REQUEST 2 PIECES DEVICES, EXPLAIN TO PT, SUPPLIES WAS ORDERED LAST ADMISSION PER PT'S REQUEST WITH 1 PIECE DECICE. BROTHER AT BED SIDE AND REQUEST NO 2 PIECES IT WORKS BETTER WITH ONE PIECE. FURTHER CONVERSATION WITH PT. AND FOUND OUT PT. WAS NOT FOLLOWING THE INSTRUCTIONS WIPE WITH SKIN PREP.TO ROSANNE-STOMA SKIN, DO NOT USE BELT. FOUND 2 BELTS STILL IN ITS ORIGINAL PACKAGE,EVEN MORE PT. DO NOT EMPTY AND DRAIN THE STOOL FREQUENTLY , HE WAIT FOR THE BAG TO LEAK AND THEN CHANGE. HE SAID IT IS TOO EMBARRANCE TO CHANGE BAG, IN THE MIDDLE OF MEETING FRIENDS. LIFE STYLE CHANGE WITH COLOSTOMY CARE EXPLAINED. PT. AND BROTHER VERBALIZES UNDERSTANDING. PER PT. PT. SEEN DR. JOY AND LOPEZ REMOVED. PT. REFUSED TO REMOVE THE COLOSTOMY AT THIS TIME FOR ASSESSMENT. PT STATED " IT SEALED WELL NOW, DON'T TOUCH" COLOSTOMY IS FUNCTION WITH SMALL AMOUNT SOFT YELLOW STOOL OUTPUT OBSERVED. PRIMARY RN AND MAKSIM LUTZ NOTIFIED ALL ABOVE INFORMATION.
[2019-03-13 11:30] VITALS: BP 149/76
--- NOTE | 2019-03-13 12:26 | NUR ---
PATIENT REMOVED TELE MONITOR 25. TAKEN TO DIALYSIS RN ROOM DUE TO PATIENT PENDING DISCHARGE
--- NOTE | 2019-03-13 15:08 | NUR ---
DISCHARGE ORDER IN CHART. AND PATIENT READY FOR FOR DISCHARGE. PATIENT GIVEN EXTRA SUPPLIES AND REINFORCED TEACHING ABOUT COLOSTOMY CARE. VISITOR PRESENT. REVIEWED STAY IN HOSPITAL WITH PATIENT AND CHANGED COLOSTOMY BAG. NO FURTHER QUESTIONS FROM PATIENT. REMOVED IV, CATH INTACT. TELE PREVIOUSLY TAKEN TO STRIPPING SHOVEL OPERATOR. PATIENT ASSISTED OFF UNIT BY ROCIO MONIQUE
== END 2019-03-13 15:50 | disposition home or self-care (01) | DRG 241 ==
LOC: ED 04:29 → DU 07:40
PROVIDERS: Emergency Medicine; Internal Medicine Gastroenterology; ADMIT Internal Medicine
PROC: 0DB98ZX Excision of Duodenum, Via Natural or Artificial Opening Endoscopic, Diagnostic (ICD-10-PCS; principal; 2019-03-12 10:00)
PROC: 0DB68ZX Excision of Stomach, Via Natural or Artificial Opening Endoscopic, Diagnostic (ICD-10-PCS; 2019-03-12 10:00)
DX: K29.71 Gastritis, unspecified, with bleeding (principal); F32.9 Major depressive disorder, single episode, unspecified; I10 Essential (primary) hypertension; K29.81 Duodenitis with bleeding; M10.9 Gout, unspecified; Z93.3 Colostomy status; Z59.0 Homelessness; Z79.899 Other long term (current) drug therapy
CPT/HCPCS: 43235; C9113; G0378; J1200; J1610; J2250; J2270; J2310; J2405; J3010; J3490; J7030

== ENCOUNTER 2019-03-17 13:11 | Emergency (ER) | payer OTHER ==
[~2019-03-17] VITALS: Ht 180.3 cm; Wt 102.5 kg
[2019-03-17 13:23] VITALS: BP 129/67; Ht 180.3 cm; Wt 102.5 kg
[2019-03-17 14:19] LABS: RED CELL DISTRIBUTION WIDTH 16.5 % (11.5-14.5)
[2019-03-17 14:22] LABS: PLATELET COUNT 809 x10^3mcL (130-400)
[2019-03-17 14:44] LABS: BILIRUBIN TOTAL 0.37 mg/dL (0.20-1.00); CARBON DIOXIDE 25.5 mmol/L (21-32); CREATININE SERUM 1.8 mg/dL (0.7-1.3); POTASSIUM SERUM 4.5 mmol/L (3.5-5.1)
[2019-03-17 14:52] LABS: ALBUMIN 2.8 g/dL (3.4-5.0); TOTAL PROTEIN, SERUM 8.3 g/dL (6.4-8.2)
== END 2019-03-17 17:30 | disposition home or self-care (01) ==
LOC: ED 13:11
PROVIDERS: Emergency Medicine
DX: R10.32 Left lower quadrant pain (principal); G89.29 Other chronic pain; K94.03 Colostomy malfunction; I10 Essential (primary) hypertension; M10.9 Gout, unspecified; F32.9 Major depressive disorder, single episode, unspecified; Z98.890 Other specified postprocedural states; Z87.442 Personal history of urinary calculi
CPT/HCPCS: 36415; 85060